=== PATIENT | female | born 1965 | race Caucasian/White ===

== ENCOUNTER 2020-12-01 08:17 | Day surgery (SDC) | payer MEDICAID ==
[~2020-12-01 08:17] MED LIST: Lactated Ringers 1,000 ML IV SCH; Lidocaine 1%/Sod Bicarbonate in NS 8.4% 1 ML Syringe IDERM PRN; Sodium Chloride 0.9% 10 ML Syringe FLUSH PRN
[2020-12-01] MEDS ORDERED: Propofol 200 MG/20 ML SDV ONE ×3 (09:04→10:59)
[2020-12-01] MEDS ORDERED: Lidocaine 1% 4 ML ONE (09:06)
[2020-12-01] MEDS ORDERED: Midazolam 1 MG/ML 2 ML SDV ONE (09:26)
--- NOTE | 2020-12-01 09:26 | PCM.PREANE ---
Preanesthetic Assessment - Procedure Proposed Procedure: EGD and Colonoscopy - Anesthesia/Transfusion/Family Hx Anesthesia History: Prior Anesthesia Without Reaction Family History of Anesthesia Reaction: No Transfusion History: No Prior Transfusion(s) Intubation History: Unknown - Review of Systems General: No Symptoms (diagnosed with MONO in the past (couple months ago)), Weakness, Fatigue Pulmonary: No Symptoms (Smoker: 1ppd times 39 years/History of ETOH abuse none for 3 days/asthma-last used inhaler 3 days ago.), Shortness of Breath, Cough Cardiovascular: No Symptoms (CAD on imaging, elevated cholesterol), Palpitations, Dyspnea on Exertion, Lightheadedness Gastrointestinal: Abdominal Pain (? PUD/rated 7-8/10), Constipation, Decreased Appetite, Difficulty Swallowing, Nausea, Vomiting Neurological: No Symptoms, Dizziness, Headache Other: Reports: Easy Bruising, Liver Problems (liver enlarged), Sinus Problem (allergic rhinitis), Depression, Anxiety - Physical Assessment NPO Status Date: 12/01/20 NPO Status Time: 05:30 Vital Signs: Last Vital Signs Temp 36.8 C 12/01/20 08:30 Pulse 88 12/01/20 08:30 Resp 18 12/01/20 08:30 BP 164/85 H 12/01/20 08:30 Pulse Ox 96 12/01/20 08:30 Height: 1.7 m Weight: 97.976 kg ASA Class: 3 Mental Status: Alert & Oriented x3 Airway Class: Mallampati = 2 Dentition: Reports: Normal Dentition, Broken Tooth/Teeth, Missing Tooth/Teeth, Caries Thyro-Mental Finger Breadths: 3 Mouth Opening Finger Breadths: 3 ROM/Head Extension: Full Lungs: Clear to Auscultation, Normal Respiratory Effort Cardiovascular: Regular Rate, Regular Rhythm, No Murmurs - Lab Values: All labs reviewed and noted and within acceptable ranges to proceed with scheduled procedure. - Imaging/EKG Impressions: EKG: SR rate=81, probable Left atrial abnormality - Allergies Allergies/Adverse Reactions: Allergies Allergy/AdvReac Type Severity Reaction Status Date / Time cephalexin [From Keflex] Allergy Swelling Verified 12/01/20 09:13 Cephalosporins Allergy Swelling Verified 12/01/20 09:13 hazelnut Allergy Cannot Verified 12/01/20 09:13 Remember naproxen [From Aleve] Allergy Anaphylactic Verified 12/01/20 09:13 Shock shellfish derived Allergy Cannot Verified 12/01/20 09:13 Remember - Anesthesia Plan Pre-Op Medication Ordered: None - Acknowledgements Anesthesia Type Planned: MAC Pt an Appropriate Candidate for the Planned Anesthesia: Yes Alternatives and Risks of Anesthesia Discussed w Pt/Guardian: Yes Pt/Guardian Understands and Agrees with Anesthesia Plan: Yes PreAnesthesia Questionnaire HEENT History: Reports: Allergic Rhinitis, Impaired Vision Other HEENT History: wears reading glasses, has removable bottom partial denture Cardiovascular History: Reports: High Cholesterol Respiratory History: Reports: Asthma Gastrointestinal History: Reports: None Genitourinary History: Reports: None 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: Musculoskeletal History: Reports: Arthritis, Osteoarthritis, Other (See Below) Other Musculoskeletal History: hip pain Neurological History: Reports: None Psychiatric History: Reports: Addiction, Anxiety, Other (See Below) Other Psychiatric History: etoh abuse Endocrine/Metabolic History: Reports: None Hematologic History: Reports: Other (See Below) Other Hematologic History: hypokalemia from alcohol abuse Immunologic History: Reports: None Oncologic (Cancer) History: Reports: None Dermatologic History: Reports: Other (See Below) Other Dermatologic History: has cystic acne - Infectious Disease History Infectious Disease History: Reports: None - Past Surgical History Head Surgeries/Procedures: Reports: None HEENT Surgical History: Reports: Oral Surgery Cardiovascular Surgical History: Reports: None Respiratory Surgical History: Reports: None GI Surgical History: Reports: None Female Surgical History: Reports: Tubal Ligation Male Surgical History: Reports: None Endocrine Surgical History: Reports: None Neurological Surgical History: Reports: None Musculoskeletal Surgical History: Reports: Hip Replacement Oncologic Surgical History: Reports: None Dermatological Surgical History: Reports: None - SUBSTANCE USE Tobacco Use Status *Q: Current Every Day Tobacco User Days Per Week of Alcohol Use: 7 Number of Drinks Per Day: 3 Total Drinks Per Week: 21 Recreational Drug Use History: No - HOME MEDS Home Medications: Home Meds Albuterol Sulfate [Proair Hfa] 2 puff INH Q4H PRN 11/30/20 [History] EPINEPHrine [Epipen] 0.3 mg IM ONETIME PRN 11/30/20 [History] Fluticasone Propionate [Flonase] 1 dose NASBOTH ASDIRECTED PRN 11/30/20 [History] Omeprazole Magnesium [Prilosec Otc] 20 mg PO DAILY 11/30/20 [History] Vortioxetine Hydrobromide [Trintellix] 10 mg PO DAILY 11/30/20 [History] atorvaSTATin [Lipitor] 40 mg PO DAILY 11/30/20 [History] chlordiazePOXIDE HCl [Chlordiazepoxide HCl] 10 mg PO DAILY 11/30/20 [History] ondansetron HCL [Zofran] 4 mg PO Q6H PRN 11/30/20 [History] - CURRENT (IN HOUSE) MEDS Current Meds: Current Medications Lactated Ringer's (Ringers, Lactated) 1,000 mls @ 125 mls/hr IV ASDIRECTED CARIN Stop: 12/01/20 23:00 Last Admin: 12/01/20 08:35 Dose: 125 mls/hr Documented by: Lidocaine/Sodium Bicarbonate (Lidocaine 1%/Sod Bicarbonate In Ns 8.4% 1 Ml Syringe) 0.25 ml IDERM ONETIME PRN PRN Reason: Prior to IV Start Stop: 12/01/20 18:00 Last Admin: 12/01/20 08:35 Dose: 0.25 ml Documented by: Sodium Chloride (Sodium Chloride 0.9% 10 Ml Syringe) 10 ml FLUSH ASDIRECTED PRN PRN Reason: Keep Vein Open Stop: 12/01/20 18:00 Discontinued Medications Lidocaine HCl (Xylocaine-Mpf 1%) Confirm Administered Dose 4 mls @ as directed .ROUTE .STK-MED ONE Stop: 12/01/20 09:07 Propofol (Propofol 200 Mg/20 Ml Sdv) Confirm Administered Dose 200 mg .ROUTE .STK-MED ONE Stop: 12/01/20 09:05
[2020-12-01] MEDS ORDERED: fentaNYL 100 MCG/2 ML SDV ONE ×2 (09:27→10:05)
[2020-12-01] MEDS ORDERED: Albuterol 0.083% 2.5 MG/3 ML Neb Soln ONE (09:39)
[2020-12-01] MEDS ORDERED: Lactated Ringers 1,000 ML ONE (10:05)
[2020-12-01] MEDS ORDERED: Albuterol 0.083% 2.5 MG/3 ML Neb Soln NEB ONE (10:30)
[2020-12-01] MEDS ORDERED: Ondansetron 4 MG/2 ML SDV IVPUSH PRN (11:08)
--- NOTE | 2020-12-01 11:36 | PCM.PRNOTE ---
- Free Text/Narrative Note: Date: 12/01/2020 Procedure: diagnostic upper endoscopy Indication: history of peptic ulcer disease with chronic severe epigastric pain and history of chronic NSAID use Endoscopist: Yordan Toscano MD Findings: prepyloric gastric ulcer (type III) with gross inflammatory change of the gastric body. Friable colonic mucosa with diverticulosis. Detailed Report: Patient was taken to the endoscopy suite and placed in left lateral decubitus position. Timeout was performed and monitored anesthesia care was initiated. A bite-block was placed and the endoscope was inserted into the mouth. The scope was advanced to the second portion of the duodenum with ease. Duodenal mucosa appeared grossly normal, and a sample of mucosa from the duodenal bulb was obtained with cold forceps. The scope was withdrawn into the distal stomach. There was a roughly 2 cm discrete ulcer with black and beckett-colored base without evidence of hemorrhage or gross appearance of malignancy. Multiple biopsies were taken from the ulcer and surrounding tissue. The mucosa of the gastric body more proximally appeared grossly inflamed. A biopsy of this tissue was obtained as well. On retroflexion, no hiatal hernia was appreciated. The scope was withdrawn into the distal esophagus. The Z-line appeared relatively normal. A biopsy of distal esophageal mucosa was obtained. Air was suctioned from the stomach prior to withdrawal of the scope. Next, attention was turned to colonoscopy. Visual inspection of the anus revealed small external hemorrhoidal skin tags. Digital exam was unremarkable-there was a palpable hypertrophied anal papilla. The colonoscope was advanced all the way to the cecum. The appendiceal orifice was visualized. Prep was very good. The scope was slowly withdrawn and mucosal surfaces were carefully inspected. Prior to traversing the proximal colon, there was noted superficial ulceration and what looked like fresh blood. It appeared like scope trauma but the scope did not traversed this area yet. This did not appear to be colitis, but a biopsy was obtained nonetheless. No polyps were identified. There was scattered diverticular disease most concentrated in the sigmoid colon. On retroflexion of the scope within the rectum, the hypertrophied anal papilla was visualized. There was no hemorrhoidal disease or other pathology noted. Air was suctioned from the distal colon and rectum prior to withdrawal of the scope. The patient tolerated the procedure well.
--- NOTE | 2020-12-01 11:37 | PCM48HPAN ---
Post Anesthesia Note - EVALUATION WITHIN 48HRS OF ANESTHETIC Vital Signs in Normal Range: Yes Patient Participated in Evaluation: Yes Respiratory Function Stable: Yes Airway Patent: Yes Cardiovascular Function Stable: Yes Hydration Status Stable: Yes Pain Control Satisfactory: Yes Nausea and Vomiting Control Satisfactory: Yes Mental Status Recovered: Yes Vital Signs: Last Vital Signs Temp 36.8 C 12/01/20 08:30 Pulse 88 12/01/20 08:30 Resp 18 12/01/20 08:30 BP 164/85 H 12/01/20 08:30 Pulse Ox 96 12/01/20 09:45
[2020-12-01] MEDS ORDERED: Sucralfate Suspension 1 GM/10 ML Cup PO ONE (11:45)
[2020-12-01 13:04] VITALS: BP 168/76; PULSE 81
--- NOTE | 2020-12-02 08:57 | CR ---
Abdomen: Upright view is obtained of the upper abdomen centered to the diaphragms. Comparison: Prior CT abdomen and pelvis exam of 11/13/20. Slight areas of increased densities within the left lateral costophrenic angle are noted. No free air is seen. Slightly prominent gas is noted within the small and large bowel. No acute osseous abnormalities appreciated. Impression: 1. Slight increased density within the lateral left costophrenic angle most likely due to atelectasis. 2. Gas within the small bowel and colon compatible with previous EGD. 3. No free air is seen. Diagnostic code #2 I agree with preliminary report from [facility] finalized on 12/01/20, 1:48 PM CDT, code 1
== END 2020-12-01 12:46 | disposition home or self-care (01) ==
LOC: JD.SDS 08:17
PROVIDERS: ATTEND Surgery
DX: Z12.11 Encounter for screening for malignant neoplasm of colon (principal); K57.30 Diverticulosis of large intestine without perforation or abscess without bleeding; K25.9 Gastric ulcer, unspecified as acute or chronic, without hemorrhage or perforation; K63.3 Ulcer of intestine; K64.4 Residual hemorrhoidal skin tags; K29.50 Unspecified chronic gastritis without bleeding; K31.89 Other diseases of stomach and duodenum; E78.00 Pure hypercholesterolemia, unspecified; J45.909 Unspecified asthma, uncomplicated; Z98.890 Other specified postprocedural states; Z79.1 Long term (current) use of non-steroidal anti-inflammatories (NSAID); Z87.891 Personal history of nicotine dependence; Z88.8 Allergy status to other drugs, medicaments and biological substances; Z91.013 Allergy to seafood; Z87.11 Personal history of peptic ulcer disease; Z79.899 Other long term (current) drug therapy; Z79.82 Long term (current) use of aspirin
CPT/HCPCS: 43239; 45380; 74018; 94640; A9270; J2250; J2704; J3010; J7120; 00813

== ENCOUNTER 2020-12-01 12:50 | Emergency (ER) | payer MEDICAID ==
[2020-12-01 13:07] VITALS: BP 168/88; PULSE 81
--- NOTE | 2020-12-01 13:52 | EDM.PDOC ---
ED HPI GENERAL MEDICAL PROBLEM - General Chief Complaint: Abdominal Pain Stated Complaint: STOMACH PAIN/POST SURGERY Time Seen by Provider: 12/01/20 13:10 - History of Present Illness INITIAL COMMENTS - FREE TEXT/NARRATIVE: 55-year-old female presents the emergency room from the PACU after having the EGD and colonoscopy done. Patient complains of pain. By the time patient arrived here she still having some pain but is a lot better than it was. Of concern is the patient's O2 saturation is 89 to 92%. The patient is a little groggy. However her pain seems to be improving according to the patient. We decided to just go ahead and watch the patient and see how she does. The patient is a habitual smoker and user of alcohol. Apparently she had a abdominal x-ray done after her procedures and this looked okay and the patient was discharged from the PACU, however she requested to come here. Abdomen Pain Score (Numeric/FACES): 7 - Related Data Allergies Allergy/AdvReac Type Severity Reaction Status Date / Time cephalexin [From Keflex] Allergy Swelling Verified 12/01/20 13:07 Cephalosporins Allergy Swelling Verified 12/01/20 13:07 hazelnut Allergy Cannot Verified 12/01/20 13:07 Remember naproxen [From Aleve] Allergy Anaphylactic Verified 12/01/20 13:07 Shock shellfish derived Allergy Cannot Verified 12/01/20 13:07 Remember Home Meds: Home Meds Albuterol Sulfate [Proair Hfa] 2 puff INH Q4H PRN 11/30/20 [History] EPINEPHrine [Epipen] 0.3 mg IM ONETIME PRN 11/30/20 [History] Fluticasone Propionate [Flonase] 1 dose NASBOTH ASDIRECTED PRN 11/30/20 [History] Omeprazole Magnesium [Prilosec Otc] 20 mg PO DAILY 11/30/20 [History] Vortioxetine Hydrobromide [Trintellix] 10 mg PO DAILY 11/30/20 [History] atorvaSTATin [Lipitor] 40 mg PO DAILY 11/30/20 [History] chlordiazePOXIDE HCl [Chlordiazepoxide HCl] 10 mg PO DAILY 11/30/20 [History] ondansetron HCL [Zofran] 4 mg PO Q6H PRN 11/30/20 [History] Sucralfate [Carafate] 1 gm PO Q6HR #60 tab 12/01/20 [Rx] Past Medical History HEENT History: Reports: Allergic Rhinitis, Impaired Vision Other HEENT History: wears reading glasses, has removable bottom partial denture Cardiovascular History: Reports: High Cholesterol Respiratory History: Reports: Asthma Gastrointestinal History: Reports: None Genitourinary History: Reports: None 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: Musculoskeletal History: Reports: Arthritis, Osteoarthritis, Other (See Below) Other Musculoskeletal History: hip pain Neurological History: Reports: None Psychiatric History: Reports: Addiction, Anxiety, Other (See Below) Other Psychiatric History: etoh abuse Endocrine/Metabolic History: Reports: None Hematologic History: Reports: Other (See Below) Other Hematologic History: hypokalemia from alcohol abuse Immunologic History: Reports: None Oncologic (Cancer) History: Reports: None Dermatologic History: Reports: Other (See Below) Other Dermatologic History: has cystic acne - Infectious Disease History Infectious Disease History: Reports: None - Past Surgical History Head Surgeries/Procedures: Reports: None HEENT Surgical History: Reports: Oral Surgery Cardiovascular Surgical History: Reports: None Respiratory Surgical History: Reports: None GI Surgical History: Reports: None Female Surgical History: Reports: Tubal Ligation Male Surgical History: Reports: None Endocrine Surgical History: Reports: None Neurological Surgical History: Reports: None Musculoskeletal Surgical History: Reports: Hip Replacement Oncologic Surgical History: Reports: None Dermatological Surgical History: Reports: None Social & Family History - Tobacco Use Tobacco Use Status *Q: Current Every Day Tobacco User Years of Tobacco use: 40 Packs/Tins Daily: 0.5 - Caffeine Use Caffeine Use: Reports: Soda - Recreational Drug Use Recreational Drug Use: No ED ROS GENERAL - Review of Systems Review Of Systems: See Below Constitutional: Reports: No Symptoms Respiratory: Reports: No Symptoms Cardiovascular: Reports: No Symptoms GI/Abdominal: Reports: Abdominal Pain. Denies: Constipation, Diarrhea, Nausea, Vomiting : Reports: No Symptoms ED EXAM, GENERAL - Physical Exam Exam: See Below Exam Limited By: No Limitations General Appearance: Alert, Other (Desaturation is stated above) Respiratory/Chest: No Respiratory Distress, Lungs Clear, Normal Breath Sounds Cardiovascular: Regular Rate, Rhythm, No Edema, No Murmur GI/Abdominal: Normal Bowel Sounds, Soft, Non-Tender, Other (Exam of this abdomen was done after she had been here for a while and she is essentially pain-free at this time she had mild discomfort on initial exam when she first arrived) Extremities: Normal Inspection, No Pedal Edema Course - Vital Signs Last Recorded V/S: Last Vital Signs Temp 36.1 C 12/01/20 13:04 Pulse 81 12/01/20 13:04 Resp 12 12/01/20 13:04 BP 168/88 H 12/01/20 13:04 Pulse Ox 95 12/01/20 14:29 - Orders/Labs/Meds Orders: Active Orders 24 hr Category Date Time Status Oxygen Therapy [RC] ASDIRECTED Care 12/01/20 14:29 Active - Re-Assessments/Exams Free Text/Narrative Re-Assessment/Exam: 12/01/20 15:24 The whole situation was a little confusing so I made the decision just to watch her for little bit and see how she did she is demonstrated good stability here in the emergency room. I did review her x-ray that was done postoperatively wh ich showed a lot of bowel gas which is to be expected after having a colonoscopy. No evidence of air under the diaphragm. At this point the patient would really like to go home we will discharge. Departure - Departure Time of Disposition: 15:27 Disposition: Home, Self-Care 01 Clinical Impression: Abdominal pain - Discharge Information Referrals: PCP,Not In Area [Primary Care Provider] - Forms: ED Department Discharge Additional Instructions: Return to the emergency room with any questions problems or worsening symptoms. Follow-up with Dr. Toscano as scheduled. Take your medications as directed. Please quit smoking. Sepsis Event Note (ED) - Evaluation Sepsis Screening Result: No Definite Risk - Focused Exam Vital Signs: Vital Signs Temp Pulse Resp BP Pulse Ox Pulse Ox 12/01/20 14:29 95 12/01/20 13:04 36.1 C 81 12 168/88 H 93 L - My Orders Last 24 Hours: My Active Orders 12/01/20 14:29 Oxygen Therapy [RC] ASDIRECTED - Assessment/Plan Last 24 Hours: My Active Orders 12/01/20 14:29 Oxygen Therapy [RC] ASDIRECTED
== END 2020-12-01 15:33 | disposition home or self-care (01) ==
LOC: JD.ED 12:50
DX: R10.9 Unspecified abdominal pain (principal); E78.00 Pure hypercholesterolemia, unspecified; J45.909 Unspecified asthma, uncomplicated; F17.200 Nicotine dependence, unspecified, uncomplicated; Z88.1 Allergy status to other antibiotic agents; Z91.018 Allergy to other foods; Z88.8 Allergy status to other drugs, medicaments and biological substances; Z91.013 Allergy to seafood; Z79.899 Other long term (current) drug therapy
CPT/HCPCS: 94762; 99282; 99283

== ENCOUNTER 2021-02-21 08:43 | Emergency (ER) | payer MEDICAID ==
[2021-02-21 09:00] VITALS: BP 160/85; PULSE 103
--- NOTE | 2021-02-21 09:08 | EDM.PDOC ---
ED HPI GENERAL MEDICAL PROBLEM - General Chief Complaint: General Stated Complaint: LEFT SIDE FULL BODY NUMBNESS Time Seen by Provider: 02/21/21 08:59 Source of Information: Reports: Patient History Limitations: Reports: No Limitations - History of Present Illness INITIAL COMMENTS - FREE TEXT/NARRATIVE: 56-year-old female presents to the ED complaining of diffuse left-sided numbness and tingling primarily in her leg and arm. Not so much in her face. She states she feels she is stumbling and weak at times. This has been going on for a week and 1/2 to 2 weeks. She denies any recent changes to any of her medications. Of note she is on multiple antidepressants. She states that time she feels hot and prickly all over but has never noted a fever. She has chronic GERD and peptic ulcer disease. She has to be careful what she swallows that she develops odynophagia with regurgitation at times. She was seen this morning in ultrasound suite for gallbladder ultrasound and apparently did not reveal any gallstones. She has no cough or sputum production. Denies any dysuria urgency or frequency. She does have a painful sore on her lower abdomen above her mons pubis for the last week tried to squeeze it but is too painful. She has no history of diabetes. Onset: Unknown/Unsure (Feels symptoms of been present for a couple of weeks.) Onset Date: 02/03/21 Duration: Week(s):, Waxing/Waning Location: Reports: Other (Feels numbness and tingling left arm left lower ext remity with generalized weakness.) Quality: Reports: Other Severity: Moderate (Generalized weakness) Improves with: Reports: None Worsens with: Reports: Other Context: Reports: Other (No specific reason.). Denies: Activity, Exercise, Lifting, Sick Contact, Trauma Associated Symptoms: Reports: Loss of Appetite, Malaise, Nausea/Vomiting, Weakness (Occasional nausea centralized). Denies: Confusion, Chest Pain, Cough, cough w sputum, Diaphoresis, Fever/Chills, Headaches, Rash, Seizure, Shortness of Breath, Syncope Treatments UND[employer]ITER [employer] LOAN: Reports: Other (see below) Generalized Pain Score (Numeric/FACES): 9 - Related Data Allergies Allergy/AdvReac Type Severity Reaction Status Date / Time cephalexin [From Keflex] Allergy Swelling Verified 02/21/21 09:01 Cephalosporins Allergy Swelling Verified 02/21/21 09:01 hazelnut Allergy Cannot Verified 02/21/21 09:01 Remember naproxen [From Aleve] Allergy Anaphylactic Verified 02/21/21 09:01 Shock shellfish derived Allergy Cannot Verified 02/21/21 09:01 Remember Home Meds: Home Meds Albuterol Sulfate [Proair Hfa] 2 puff INH Q4H PRN 11/30/20 [History] EPINEPHrine [Epipen] 0.3 mg IM ONETIME PRN 11/30/20 [History] Fluticasone Propionate [Flonase] 1 dose NASBOTH ASDIRECTED PRN 11/30/20 [History] Omeprazole Magnesium [Prilosec Otc] 20 mg PO DAILY 11/30/20 [History] Vortioxetine Hydrobromide [Trintellix] 10 mg PO DAILY 11/30/20 [History] atorvaSTATin [Lipitor] 40 mg PO DAILY 11/30/20 [History] chlordiazePOXIDE HCl [Chlordiazepoxide HCl] 10 mg PO DAILY 11/30/20 [History] ondansetron HCL [Zofran] 4 mg PO Q6H PRN 11/30/20 [History] Sucralfate [Carafate] 1 gm PO Q6HR #60 tab 12/01/20 [Rx] Ondansetron [Ondansetron ODT] 4 mg PO Q6H PRN #30 tab.rapdis 12/07/20 [Rx] Gabapentin [Neurontin] 100 mg PO BID #60 cap 02/21/21 [Rx] oxyCODONE HCl/Acetaminophen [Percocet 5-325 mg Tablet] 1 - 2 each PO Q4H PRN #28 tablet 02/21/21 [Rx] Past Medical History HEENT History: Reports: Allergic Rhinitis, Impaired Vision Other HEENT History: wears reading glasses, has removable bottom partial denture Cardiovascular History: Reports: High Cholesterol Respiratory History: Reports: Asthma Gastrointestinal History: Reports: None Genitourinary History: Reports: None [employer] History: Reports: Musculoskeletal History: Reports: Arthritis, Osteoarthritis, Other (See Below) Other Musculoskeletal History: hip pain Neurological History: Reports: None Psychiatric History: Reports: Addiction, Anxiety, Other (See Below) Other Psychiatric History: etoh abuse Endocrine/Metabolic History: Reports: Obesity/BMI 30+ Hematologic History: Reports: Other (See Below) Other Hematologic History: hypokalemia from alcohol abuse Immunologic History: Reports: None Oncologic (Cancer) History: Reports: None Dermatologic History: Reports: Other (See Below) Other Dermatologic History: has cystic acne - Infectious Disease History Infectious Disease History: Reports: None - Past Surgical History HEENT Surgical History: Reports: Oral Surgery Female Surgical History: Reports: Tubal Ligation Musculoskeletal Surgical History: Reports: Hip Replacement Social & Family History - Caffeine Use Caffeine Use: Reports: Soda ED ROS GENERAL - Review of Systems Review Of Systems: See Below Constitutional: Reports: Malaise, Weakness, Fatigue, Decreased Appetite, Weight Gain. Denies: Fever, Chills HEENT: Reports: Glasses (Wears readers.) Respiratory: Reports: Shortness of Breath. Denies: Wheezing, Pleuritic Chest Pain, Cough (On exertion), Sputum Cardiovascular: Reports: Dyspnea on Exertion, Lightheadedness. Denies: Chest Pain, Blood Pressure Problem, Claudication, Edema, Orthopnea, Palpitations Endocrine: Reports: Fatigue (On occasion) GI/Abdominal: Reports: Constipation : Reports: Frequency, Other. Denies: Dysuria Musculoskeletal: Reports: Joint Pain (Knees hips low back neck at times) Skin: Reports: Other (Red sore midline of the lower abdomen just above the mons pubis) Neurological: Reports: Headache, Numbness, Paresthesia, Tingling (Numbness and tingling left arm left leg and perhaps mildly in the left face at times.), Difficulty Walking, Weakness. Denies: Confusion (. She believes this is been present for about a week.), Dizziness, Pre-Existing Deficit (Left-sided), Seizure, Syncope, Tremors, Trouble Speaking (Feels stumble he at times.), Change in Speech Psychiatric: Reports: Anxiety, Depression Hematologic/Lymphatic: Reports: No Symptoms Immunologic: Reports: No Symptoms ED EXAM, GENERAL - Physical Exam Exam: See Below Exam Limited By: No Limitations General Appearance: Alert, WD/WN, No Apparent Distress, Other (Temperature is 36.6 degrees and she does not feel warm to palpation heart rate was 103 and sinus at the bedside. Respiratory of 18 with O2 sats of 98% room air. Blood pressure mildly elevated 160/85.) Eye Exam: Right Eye: Normal Inspection (No skin), Bilateral Eye: PERRL Throat/Mouth: Other Head: Atraumatic, Normocephalic Neck: Normal Inspection, Tender Lateral (Mild tenderness bilateral cervical spine. Full range of motion however.). No: Carotid Bruit, Lymphadenopathy (L), Lymphadenopathy (R) Respiratory/Chest: No Respiratory Distress, Lungs Clear, Normal Breath Sounds, No Accessory Muscle Use, Other (Mild chest wall tenderness over the fourth rib bilaterally and she comments that her breasts hurt all the time as well. I.e. mastalgia) Cardiovascular: Normal Peripheral Pulses, Regular Rate, Rhythm, No Edema, No Gallop, No Murmur, No Rub Peripheral Pulses: 2+: Carotid (L), Carotid (R), Posterior Tibial (L), Posterior Tibial (R), Dorsalis Pedis (L), Dorsalis Pedis (R) GI/Abdominal: Normal Bowel Sounds, Soft, Non-Tender, No Organomegaly, No Distention, No Mass, Pelvis Stable, Other (Mildly obese.). No: Guarding, Rigid, Rebound, Tender Back Exam: Normal Inspection, Full Range of Motion. No: CVA Tenderness (L), CVA Tenderness (R) Extremities: Normal Inspection, Normal Range of Motion, Non-Tender, No Pedal Edema Neurological: Alert, Oriented, CN II-XII Intact, Normal Cognition, Other (No pronator drift. No motor power tone deficit in either upper extremity or lower extremities. [id number] evaluation normal.) Psychiatric: Normal Affect, Normal Mood Skin Exam: Warm, Dry, Intact, Normal Color, No Rash #1 Interpretation EKG Date: 02/21/21 Time: 09:31 Rhythm: NSR Rate (Beats/Min): 92 [place]: Normal P-Wave: Enlarged (Consider left atrial hypertrophy) QRS: Other (Initial poor R wave progression.) ST-T: Other (Diffuse delayed repolarization abnormality) QT: Prolonged (Mildly prolonged) EKG Interpretation Comments: Abnormal ECG Course - Vital Signs Last Recorded V/S: Last Vital Signs Temp 36.6 C 02/21/21 08:57 Pulse 103 H 02/21/21 08:57 Resp 18 02/21/21 08:57 BP 160/85 H 02/21/21 08:57 Pulse Ox 98 02/21/21 08:57 - Orders/Labs/Meds Labs: Laboratory Tests 02/21/21 02/21/21 02/21/21 Range/Units 09:24 09:24 09:24 WBC 7.08 (3.98-10.04) K/mm3 RBC 3.80 L (3.98-5.22) M/mm3 Hgb 14.1 (11.2-15.7) gm/dl Hct 41.2 (34.1-44.9) % MCV 108.4 H (79.4-94.8) fl MCH 37.1 H (25.6-32.2) pg MCHC 34.2 (32.2-35.5) g/dl RDW Std Deviation 67.1 H (36.4-46.3) fL Plt Count 143 L (182-369) K/mm3 MPV 11.5 (9.4-12.3) fl Neut % (Auto) 67.5 (34.0-71.1) % Lymph % (Auto) 23.9 (19.3-51.7) % Parker % (Auto) 6.9 (4.7-12.5) % Eos % (Auto) 1.3 (0.7-5.8) Baso % (Auto) 0.4 (0.1-1.2) % Neut # (Auto) 4.78 (1.56-6.13) K/mm3 Lymph # (Auto) 1.69 (1.18-3.74) K/mm3 Parker # (Auto) 0.49 H (0.24-0.36) K/mm3 Eos # (Auto) 0.09 (0.04-0.36) K/mm3 Baso # (Auto) 0.03 (0.01-0.08) K/mm3 Manual Slide Review Abnormal smear ESR 49 H (0-20) mm/hr Sodium 143 (136-145) mEq/L Potassium 3.6 (3.5-5.1) mEq/L Chloride 105 (98-107) mEq/L Carbon Dioxide 25 (21-32) mEq/L Anion Gap 16.6 H (5-15) BUN 3 L (7-18) mg/dL Creatinine 0.7 (0.55-1.02) mg/dL Est Cr Clr Drug Dosing 85.19 mL/min Estimated GFR (MDRD) > 60 (>60) mL/min BUN/Creatinine Ratio 4.3 L (14-18) Glucose 104 H (70-99) mg/dL Calcium 8.9 (8.5-10.1) mg/dL Magnesium 1.8 (1.8-2.4) mg/dL Total Bilirubin 1.5 H (0.2-1.0) mg/dL GGT (5-55) U/L AST 107 H (15-37) U/L ALT 30 (14-59) U/L Alkaline Phosphatase 408 H (46-116) U/L C-Reactive Protein 3.2 H* (<1.0) mg/dL Total Protein 8.0 (6.4-8.2) g/dl Albumin 3.1 L (3.4-5.0) g/dl Globulin 4.9 gm/dL Albumin/Globulin Ratio 0.6 L (1-2) Vitamin B12 (193-986) pg/ml TSH 3rd Generation 2.992 (0.358-3.74) uIU/mL Urine Color (Yellow) Urine Appearance (Clear) Urine pH (5.0-8.0) Ur Specific [place] (1.005-1.030) Urine Protein (Negative) Urine Glucose (UA) (Negative) Urine Ketones (Negative) Urine Occult Blood (Negative) Urine Nitrite (Negative) Urine Bilirubin (Negative) Urine Urobilinogen (0.2-1.0) Ur Leukocyte Esterase (Negative) Urine RBC (0-5) /hpf Urine WBC (0-5) /hpf Ur Squamous Epith Cells (0-5) /hpf Urine Bacteria (FEW) /hpf Urine Mucus (FEW) /hpf 02/21/21 02/21/21 02/21/21 Range/Units 09:24 09:24 12:05 WBC (3.98-10.04) K/mm3 RBC (3.98-5.22) M/mm3 Hgb (11.2-15.7) gm/dl Hct (34.1-44.9) % MCV (79.4-94.8) fl MCH (25.6-32.2) pg MCHC (32.2-35.5) g/dl RDW Std Deviation (36.4-46.3) fL Plt Count (182-369) K/mm3 MPV (9.4-12.3) fl Neut % (Auto) (34.0-71.1) % Lymph % (Auto) (19.3-51.7) % Parker % (Auto) (4.7-12.5) % Eos % (Auto) (0.7-5.8) Baso % (Auto) (0.1-1.2) % Neut # (Auto) (1.56-6.13) K/mm3 Lymph # (Auto) (1.18-3.74) K/mm3 Parker # (Auto) (0.24-0.36) K/mm3 Eos # (Auto) (0.04-0.36) K/mm3 Baso # (Auto) (0.01-0.08) K/mm3 Manual Slide Review ESR (0-20) mm/hr Sodium (136-145) mEq/L Potassium (3.5-5.1) mEq/L Chloride (98-107) mEq/L Carbon Dioxide (21-32) mEq/L Anion Gap (5-15) BUN (7-18) mg/dL Creatinine (0.55-1.02) mg/dL Est Cr Clr Drug Dosing mL/min Estimated GFR (MDRD) (>60) mL/min BUN/Creatinine Ratio (14-18) Glucose (70-99) mg/dL Calcium (8.5-10.1) mg/dL Magnesium (1.8-2.4) mg/dL Total Bilirubin (0.2-1.0) mg/dL GGT 876 H (5-55) U/L AST (15-37) U/L ALT (14-59) U/L Alkaline Phosphatase (46-116) U/L C-Reactive Protein (<1.0) mg/dL Total Protein (6.4-8.2) g/dl Albumin (3.4-5.0) g/dl Globulin gm/dL Albumin/Globulin Ratio (1-2) Vitamin B12 1581 H (193-986) pg/ml TSH 3rd Generation (0.358-3.74) uIU/mL Urine Color Belinda H (Yellow) Urine Appearance Slt cloudy H (Clear) Urine pH 7.0 (5.0-8.0) Ur Specific [place] 1.020 (1.005-1.030) Urine Protein 2+ H (Negative) Urine Glucose (UA) Negative (Negative) Urine Ketones Trace H (Negative) Urine Occult Blood Negative (Negative) Urine Nitrite Negative (Negative) Urine Bilirubin 2+ H (Negative) Urine Urobilinogen 4.0 H (0.2-1.0) Ur Leukocyte Esterase Negative (Negative) Urine RBC 0-5 (0-5) /hpf Urine WBC 0-5 (0-5) /hpf Ur Squamous Epith Cells 5-10 H (0-5) /hpf Urine Bacteria Few (FEW) /hpf Urine Mucus Many H (FEW) /hpf Meds: Medications Discontinued Medications Generic Name Dose Route Start Last Admin Trade Name Freq PRN Reason Stop Dose Admin Hydromorphone HCl 1 mg 02/21/21 12:29 02/21/21 12:42 Hydromorphone 1 Mg/Ml Syringe IVPUSH 02/21/21 12:30 1 mg ONETIME ONE Administration Dextrose/Sodium Chloride 1,000 mls @ 250 mls/hr 02/21/21 09:15 02/21/21 09:25 Dextrose 5%-Normal Saline IV 250 mls/hr ASDIRECTED CARIN Administration Ondansetron HCl 4 mg 02/21/21 12:32 02/21/21 12:43 Ondansetron 4 Mg/2 Ml Sdv IVPUSH 02/21/21 12:33 4 mg ONETIME ONE Administration - Radiology Interpretation Free Text/Narrative:: 56-year-old female attends the ED with a 2-week history are better of intermittent paresthesias particularly left leg left arm and occasionally left side of her face. Associated intermittent stumbling type gait noted more so on the left side and on the right. Headaches almost daily. Denies any visual acuity changes recently needing glasses to operate her cell phone. Plan IV D5 normal saline at 250 mils per hour. Routine labs and serum TSH to be done. CT head will be done as well. - Re-Assessments/Exams Free Text/Narrative Re-Assessment/Exam: 02/21/21 10:42 CT of the head without contrast has been completed. Visualized sulci and convexities are little more prominent than one went anticipated for her age. I.e. mild generalized atrophy. Mild small vessel ischemic changes of both basal ganglia. Ventricles are normal. Visualized paranasal sinuses are normal. There is no intracranial mass-effect or bleeding. Nothing to account for left-sided paresthesias. I reviewed the gallbladder ultrasound that was done this morning as well. It revealed slightly enlarged liver with steatosis. Gallbladder contains no gallstones and no thickening of the gallbladder wall. Visualized portion of the right kidney within normal limits. Visualized portions of the head of the pancreas were reportedly normal as well. 02/21/21 10:45 White count is 7.08 67.5% neutrophils. Hemoglobin is 14.1 with hematocrit of 41.2. MCV is elevated at 108.4. Platelet count 143,000. Sed rate is elevated at forty-nine. Sodium is 143 with a potassium 3.6. Chloride 105 with a bicarb of twenty-five. Anion gap is slightly elevated at 618.6. BUN is three with a creatinine of 0.7 and GFR greater than sixty. Glucose is 104. Calcium was 8.9. Magnesium 1.8. Bilirubin is mildly elevated at 1.5 with AST of 107 and ALT of thirty. Alkaline phosphatase is elevated at 408. C-reactive protein is mildly elevated at 3.2. Total protein 8.0 with an albumin fraction of 3.1 TSH is normal at 2.99. A serum GGT will be ordered with a lipase. Need to see if alkaline phosphatase elevation is coming from bone or liver. 02/21/21 11:59 GGT is elevated at 876. Therefore elevated alk. phosphatase is coming from the liver. He had the CT scan of the abdomen pelvis that was performed in November of this year and it did indicate some splenomegaly and hepatomegaly. On questioning the patient does indicate that she did have a heavy alcohol use pattern for many years but has slowed it up tremendously the last several months. She was also appreciated to have duodenitis and had 2 ul cers apparently on EGD exam. She states she is lost 24 pounds of weight in the last 4 months likely from stopping to drink alcohol but she reports she cannot have very much to eat at one time as will make her have increased upper abdominal pain or vomit. Current pain syndrome appears to be fibromyalgia. It appears that is worsened tremendously over the last 2 weeks. Patient will be given Dilaudid 1 mg IV with Zofran 4 mg IV for generalized pain syndrome. 02/21/21 15:00 B12 level came back normal at 1581. Generalized pain syndrome appears to be secondary to her myalgias syndrome. For some reason it has gotten dramatically worse over the last 2 weeks. Unclear if this could be due to Trintellix since I have no familiarity with this drug and his serotonin changes in the brain. It appears that she is unlikely to benefit from alternative antidepressant at this time. I will discharge her on Percocet tabs 5 /325 mg strength 1 every 6-8 hours as needed for pain relief until follow-up with her primary care provider. She also bought MiraLAX 17 g daily to prevent constipation while on pain medication. Consideration of Neurontin or gabapentin for current pain syndrome and I will start her on 100 mg at bedtime. Departure - Departure Time of Disposition: 15:10 Disposition: Home, Self-Care 01 Condition: Fair Clinical Impression: Primary fibromyalgia syndrome - Discharge Information *PRESCRIPTION DRUG MONITORING PROGRAM REVIEWED*: Not Applicable *COPY OF PRESCRIPTION DRUG MONITORING REPORT IN PATIENT TOO: Not Applicable Prescriptions: Gabapentin [Neurontin] 100 mg PO BID #60 cap oxyCODONE HCl/Acetaminophen [Percocet 5-325 mg Tablet] 1 - 2 each PO Q4H PRN #28 tablet PRN Reason: pain relief. Instructions: Myofascial Pain Syndrome and Fibromyalgia Referrals: PCP,Not In Area [Primary Care Provider] - Forms: ED Department Discharge Additional Instructions: Evaluation in the emergency room today in regards to diffuse left-sided numbness tingling burning and prickly sensation which we called paresthesias. The exact cause for this is unclear but it appears to be underlying fibromyalgia syndrome due to the pain that it is causing you. Symptoms have worsened substantially in the last [address] of the brain carried out reveals no abnormalities. Lab tests reveal evidence of fatty liver disease and perhaps very mild cirrhosis of the liver from previous alcohol overuse. Vitamin B12 levels were checked and they came back in the normal range. Treatment is therefore management of pain with Neurontin 100 mg at bedtime and 100 mg first thing in the morning for the next 10 to 14 days and then dosage could be gradually increased as tolerated. In the interim Percocet tabs 5/325 mg strength ideally 1 tablet every 6-8 hours as needed for pain relief until follow-up with primary care provider. Continue all other current medications as well. You should start MiraLAX powder 17 g daily with juice of choice to prevent constipation while taking pain medications. Sepsis Event Note (ED) - Focused Exam Vital Signs: Vital Signs Temp Pulse Resp BP Pulse Ox 08/03/21 08:57 36.6 C 103 H 18 160/85 H 98
[2021-02-21] MEDS ORDERED: Dextrose 5%-0.9% NaCl 1,000 ML IV SCH (09:15)
--- NOTE | 2021-02-21 10:11 | CT ---
Head CT Technique: Multiple axial sections through the brain were obtained. Reconstructed coronal and sagittal images were obtained. Intravenous contrast was not utilized. Comparison: No previous intracranial imaging is available. Findings: Ventricles along with basal cisterns and sulci over the convexities are slightly prominent. No abnormal parenchymal densities are seen. No evidence of intracranial hemorrhage is seen. No midline shift or mass-effect is seen. Bone window settings were reviewed. Visualized paranasal sinuses and mastoid sinuses show nothing acute. No acute calvarial abnormality is appreciated. Impression: 1. Mild generalized atrophy. 2. Nothing acute is appreciated on noncontrast head CT study. Note: MRI brain would be more sensitive for evaluation of white matter disease if clinically needed. Diagnostic code #2
[2021-02-21] MEDS ORDERED: HYDROmorphone 1 MG/ML Syringe IVPUSH ONE (12:29)
[2021-02-21] MEDS ORDERED: Ondansetron 4 MG/2 ML SDV IVPUSH ONE (12:32)
== END 2021-02-21 15:29 | disposition home or self-care (01) ==
LOC: JD.ED 08:43
DX: M79.7 Fibromyalgia (principal); E78.00 Pure hypercholesterolemia, unspecified; J45.909 Unspecified asthma, uncomplicated; M19.90 Unspecified osteoarthritis, unspecified site; R94.31 Abnormal electrocardiogram [ECG] [EKG]; E66.9 Obesity, unspecified; Z68.30 Body mass index [BMI] 30.0-30.9, adult; Z88.1 Allergy status to other antibiotic agents; Z88.6 Allergy status to analgesic agent; Z91.013 Allergy to seafood; Z91.018 Allergy to other foods; Z79.899 Other long term (current) drug therapy
CPT/HCPCS: 36415; 70450; 80053; 81001; 82607; 82977; 83735; 84443; 85025; 85652; 86140; 93005; 96374; 96375; 99284; J1170; J2405; J7042; 93010

== ENCOUNTER 2021-04-12 20:59 | Emergency (ER) | payer MEDICAID ==
[2021-04-12 21:08] VITALS: BP 128/105
--- NOTE | 2021-04-12 21:09 | EDM.PDOC ---
ED HPI GENERAL MEDICAL PROBLEM - General Chief Complaint: General Stated Complaint: [facility] Time Seen by Provider: 04/12/21 21:01 - History of Present Illness INITIAL COMMENTS - FREE TEXT/NARRATIVE: 56-year-old female brought in by [facility] with multiple complaints. Patient is weak and tired hurts all over she has felt warm at times. She has some intermittent abdominal symptoms. She does not believe she is been exposed to Covid because she never goes out of the house but her boyfriend had Covid a year ago and he is in and out all the time. The patient may also have problems with her potassium being low she most from this 5 years ago. However the patient does not take any medications for this in fact she says she was on 20 some odd medications in the past and stopped them all some time ago she has scratch that. She has not been able to document any fevers but she feels warm at times. She really denies any shortness of breath or cough. She also complains of left rib pain however denies any trauma. Chest Pain Score (Numeric/FACES): 4 - Related Data Allergies Allergy/AdvReac Type Severity Reaction Status Date / Time cephalexin [From Keflex] Allergy Swelling Verified 04/12/21 21:07 Cephalosporins Allergy Swelling Verified 04/12/21 21:07 hazelnut Allergy Cannot Verified 04/12/21 21:07 Remember naproxen [From Aleve] Allergy Anaphylactic Verified 04/12/21 21:07 Shock shellfish derived Allergy Cannot Verified 04/12/21 21:07 Remember Home Meds: Home Meds Potassium Chloride 20 meq PO BID #6 packet 04/13/21 [Rx] Past Medical History HEENT History: Reports: Allergic Rhinitis, Impaired Vision Other HEENT History: wears reading glasses, has removable bottom partial denture Cardiovascular History: Reports: High Cholesterol Respiratory History: Reports: Asthma Gastrointestinal History: Reports: None Genitourinary History: Reports: None 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: Musculoskeletal History: Reports: Arthritis, Osteoarthritis, Other (See Below) Other Musculoskeletal History: hip pain Neurological History: Reports: None Psychiatric History: Reports: Addiction, Anxiety, Other (See Below) Other Psychiatric History: etoh abuse Endocrine/Metabolic History: Reports: Obesity/BMI 30+ Hematologic History: Reports: Other (See Below) Other Hematologic History: hypokalemia from alcohol abuse Immunologic History: Reports: None Oncologic (Cancer) History: Reports: None Dermatologic History: Reports: Other (See Below) Other Dermatologic History: has cystic acne - Infectious Disease History Infectious Disease History: Reports: None - Past Surgical History HEENT Surgical History: Reports: Oral Surgery Female Surgical History: Reports: Tubal Ligation Musculoskeletal Surgical History: Reports: Hip Replacement Social & Family History - Caffeine Use Caffeine Use: Reports: Soda ED ROS GENERAL - Review of Systems Review Of Systems: See Below Constitutional: Reports: No Symptoms HEENT: Reports: No Symptoms Respiratory: Reports: No Symptoms Cardiovascular: Reports: No Symptoms Endocrine: Reports: No Symptoms GI/Abdominal: Reports: Constipation Musculoskeletal: Reports: Other (Generalized crampiness) Skin: Reports: No Symptoms Neurological: Reports: No Symptoms Psychiatric: Reports: Anxiety ED EXAM, GENERAL - Physical Exam Exam: See Below Exam Limited By: No Limitations General Appearance: Alert, No Apparent Distress Head: Atraumatic, Normocephalic Neck: Normal Inspection, Supple, Non-Tender, Full Range of Motion. No: Lymphadenopathy (L), Lymphadenopathy (R) Respiratory/Chest: No Respiratory Distress, Lungs Clear, Normal Breath Sounds Cardiovascular: Normal Peripheral Pulses, Regular Rate, Rhythm, No Edema GI/Abdominal: Normal Bowel Sounds, Soft, Non-Tender Back Exam: Normal Inspection. No: CVA Tenderness (L), CVA Tenderness (R) Extremities: Normal Inspection, No Pedal Edema Neurological: Alert, Oriented, Normal Cognition Psychiatric: Anxious Skin Exam: Warm, Dry, Intact Lymphatic: No Adenopathy #1 Interpretation EKG Date: 04/12/21 Rhythm: NSR [place]: Normal P-Wave: Present QRS: Other (Mostly normal slight delay in R wave progression) ST-T: Normal QT: Normal Comparison: No Change (No change noted from 02/21/2021) EKG Interpretation Comments: Mostly normal EKG Course - Vital Signs Last Recorded V/S: Last Vital Signs Temp 36.6 C 04/12/21 21:06 Pulse 83 04/13/21 05:17 Resp 16 04/13/21 03:03 BP 128/105 H 04/12/21 21:06 Pulse Ox 96 04/13/21 05:17 - Orders/Labs/Meds Orders: Active Orders 24 hr Category Date Time Status Chest 1V Frontal [CR] Stat Exams 04/12/21 21:19 Taken CORONAVIRUS COVID-19 DEMOND [MOLEC] Stat Lab 04/12/21 21:02 Ordered UA RFX HEVER AND CULT IF INDIC [URIN] Stat Lab 04/12/21 21:19 Ordered Sodium Chloride 0.9% [Normal Saline] 1,000 ml Med 04/13/21 00:45 Active IV ONETIME Medication Orders Sodium Chloride (Normal Saline) 1,000 mls @ 75 mls/hr IV ONETIME ONE Stop: 04/13/21 14:04 Last Admin: 04/13/21 00:45 Dose: 75 mls/hr Documented by: PAYAL Labs: Laboratory Tests 04/12/21 04/12/21 04/12/21 Range/Units 21:20 21:20 21:20 WBC 6.94 (3.98-10.04) K/mm3 RBC 3.79 L (3.98-5.22) M/mm3 Hgb 12.7 (11.2-15.7) gm/dl Hct 38.6 (34.1-44.9) % MCV 101.8 H D (79.4-94.8) fl MCH 33.5 H (25.6-32.2) pg MCHC 32.9 (32.2-35.5) g/dl RDW Std Deviation 55.8 H (36.4-46.3) fL Plt Count 133 L (182-369) K/mm3 MPV 11.9 (9.4-12.3) fl Neutrophils % (Manual) 62 H (40-60) % Band Neutrophils % 0 (0-10) % Lymphocytes % (Manual) 32 (20-40) % Atypical Lymphs % 0 % Monocytes % (Manual) 6 (2-10) % Eosinophils % (Manual) 0 L (0.7-5.8) % Basophils % (Manual) 0 L (0.1-1.2) Platelet Estimate Decreased Anisocytosis 1+ slight Macrocytosis 1+ slight RBC Morph Comment Not Reportable PT 13.5 H (9.7-12.0) SECONDS INR 1.23 D-Dimer, Quantitative 0.77 H (0.19-0.50) mg/L Sodium 141 (136-145) mEq/L Potassium 3.2 L (3.5-5.1) mEq/L Chloride 103 (98-107) mEq/L Carbon Dioxide 25 (21-32) mEq/L Anion Gap 16.2 H (5-15) BUN 3 L (7-18) mg/dL Creatinine 0.7 (0.55-1.02) mg/dL Est Cr Clr Drug Dosing TNP Estimated GFR (MDRD) > 60 (>60) mL/min BUN/Creatinine Ratio 4.3 L (14-18) Glucose 107 H (70-99) mg/dL Calcium 8.9 (8.5-10.1) mg/dL Magnesium 1.4 L (1.8-2.4) mg/dL Ferritin (8-252) ng/ml Total Bilirubin 2.0 H (0.2-1.0) mg/dL Direct Bilirubin (0.0-0.2) mg/dl AST 64 H (15-37) U/L ALT 27 (14-59) U/L Alkaline Phosphatase 367 H (46-116) U/L Lactate Dehydrogenase 116 (81-234) U/L Troponin I < 0.017 (0.00-0.056) ng/mL C-Reactive Protein 1.0 (<1.0) mg/dL Total Protein 7.9 (6.4-8.2) g/dl Albumin 3.1 L (3.4-5.0) g/dl Globulin 4.8 gm/dL Albumin/Globulin Ratio 0.7 L (1-2) 04/12/21 04/12/21 Range/Units 21:20 21:20 WBC (3.98-10.04) K/mm3 RBC (3.98-5.22) M/mm3 Hgb (11.2-15.7) gm/dl Hct (34.1-44.9) % MCV (79.4-94.8) fl MCH (25.6-32.2) pg MCHC (32.2-35.5) g/dl RDW Std Deviation (36.4-46.3) fL Plt Count (182-369) K/mm3 MPV (9.4-12.3) fl Neutrophils % (Manual) (40-60) % Band Neutrophils % (0-10) % Lymphocytes % (Manual) (20-40) % Atypical Lymphs % % Monocytes % (Manual) (2-10) % Eosinophils % (Manual) (0.7-5.8) % Basophils % (Manual) (0.1-1.2) Platelet Estimate Anisocytosis Macrocytosis RBC Morph Comment PT (9.7-12.0) SECONDS INR D-Dimer, Quantitative (0.19-0.50) mg/L Sodium (136-145) mEq/L Potassium (3.5-5.1) mEq/L Chloride (98-107) mEq/L Carbon Dioxide (21-32) mEq/L Anion Gap (5-15) BUN (7-18) mg/dL Creatinine (0.55-1.02) mg/dL Est Cr Clr Drug Dosing Estimated GFR (MDRD) (>60) mL/min BUN/Creatinine Ratio (14-18) Glucose (70-99) mg/dL Calcium (8.5-10.1) mg/dL Magnesium (1.8-2.4) mg/dL Ferritin 243 (8-252) ng/ml Total Bilirubin (0.2-1.0) mg/dL Direct Bilirubin 0.80 H (0.0-0.2) mg/dl AST (15-37) U/L ALT (14-59) U/L Alkaline Phosphatase (46-116) U/L Lactate Dehydrogenase (81-234) U/L Troponin I (0.00-0.056) ng/mL C-Reactive Protein (<1.0) mg/dL Total Protein (6.4-8.2) g/dl Albumin (3.4-5.0) g/dl Globulin gm/dL Albumin/Globulin Ratio (1-2) Meds: Medications Generic Name Dose Route Start Last Admin Trade Name Freq PRN Reason Stop Dose Admin Sodium Chloride 1,000 mls @ 75 mls/hr 04/13/21 00:45 04/13/21 00:45 Normal Saline IV 04/13/21 14:04 75 mls/hr ONETIME ONE Administration Discontinued Medications Generic Name Dose Route Start Last Admin Trade Name Freq PRN Reason Stop Dose Admin Magnesium Sulfate 2 gm/ Premix 50 mls @ 25 mls/hr 04/12/21 22:36 04/12/21 22:56 IV 04/13/21 00:35 25 mls/hr ONETIME ONE Administration Potassium Chloride 10 meq/ 100 mls @ 100 mls/hr 04/12/21 23:00 04/13/21 04:38 Premix IV 04/13/21 02:59 100 mls/hr Q1H CARIN Administration Lorazepam 1 mg 04/12/21 23:46 04/13/21 00:10 Lorazepam 2 Mg/Ml Sdv IVPUSH 04/12/21 23:47 1 mg ONETIME ONE Administration Potassium Chloride 40 meq 04/12/21 22:36 04/12/21 22:56 Potassium Chloride 20 Meq Tab.Er PO 04/12/21 22:37 Not Given ONETIME ONE - Re-Assessments/Exams Free Text/Narrative Re-Assessment/Exam: 04/13/21 05:19 Patient is doing better after receiving 2 g of IV magnesium 40 mEq of IV potassi um. We will discharge her with 20 mEq packets of potassium 1 twice a day for 3 days. And she needs to find a oral supplement for magnesium roughly 400 mg daily. Departure - Departure Time of Disposition: 05:20 Disposition: Home, Self-Care 01 Clinical Impression: Hypokalemia, Hypomagnesemia - Discharge Information Prescriptions: Potassium Chloride 20 meq PO BID #6 packet Instructions: Hypomagnesemia, Hypokalemia Referrals: PCP,None [Primary Care Provider] - Forms: ED Department Discharge Additional Instructions: Return to the emergency room with any questions problems or worsening symptoms. You need to take some potassium take 1 packet twice daily for the next 3 days. You need to start a magnesium supplement that you can tolerate in the range of 250 to 400 mg daily. Follow-up with your regular healthcare provider early next week to recheck your potassium and magnesium levels and address methods to prevent these levels from dropping again. Sepsis Event Note (ED) - Focused Exam Vital Signs: Vital Signs Temp Pulse Resp BP Pulse Ox 04/13/21 05:17 83 96 04/13/21 03:03 94 16 92 L 04/12/21 21:06 36.6 C 93 16 128/105 H 98 - My Orders Last 24 Hours: My Active Orders 04/12/21 21:02 CORONAVIRUS COVID-19 DEMOND [MOLEC] Stat 04/12/21 21:19 Chest 1V Frontal [CR] Stat UA RFX HEVER AND CULT IF INDIC [URIN] Stat 04/13/21 00:45 Sodium Chloride 0.9% [Normal Saline] 1,000 ml IV ONETIME - Assessment/Plan Last 24 Hours: My Active Orders 04/12/21 21:02 CORONAVIRUS COVID-19 DEMOND [MOLEC] Stat 04/12/21 21:19 Chest 1V Frontal [CR] Stat UA RFX HEVER AND CULT IF INDIC [URIN] Stat 04/13/21 00:45 Sodium Chloride 0.9% [Normal Saline] 1,000 ml IV ONETIME
[2021-04-12] MEDS ORDERED: Magnesium Sulfate/Water 2 GM in Premix Bag 1 BAG IV ONE (22:36)
[2021-04-12] MEDS ORDERED: Potassium Chloride 20 MEQ Tab.ER PO ONE (22:36)
[2021-04-12] MEDS ORDERED: LORazepam 2 MG/ML SDV IVPUSH ONE (23:46)
[2021-04-13] MEDS: Potassium Chloride 10 MEQ in Premix Bag 1 BAG IV SCH ×4 (00:20→04:38)
[2021-04-13] MEDS ORDERED: Sodium Chloride 0.9% 1,000 ML IV ONE (00:45)
[2021-04-13 05:18] VITALS: PULSE 83
--- NOTE | 2021-04-13 06:55 | CR ---
Chest: Frontal view of the chest was obtained. Comparison: No prior chest imaging is available. Heart size and mediastinum are normal. Lungs show slight density within the right lung base. Lungs otherwise are clear. Bony structures show nothing acute. Impression: 1. Slight density within the right lung base. Difficult to exclude mild area of pneumonia if patient has infectious symptoms. If no infectious symptoms are present, noncontrast chest CT could be obtained to further evaluate. 2. Chest x-ray is otherwise unremarkable. Diagnostic code #3
== END 2021-04-13 07:50 | disposition home or self-care (01) ==
LOC: JD.ED 20:59
DX: E87.6 Hypokalemia (principal); E83.42 Hypomagnesemia; E78.00 Pure hypercholesterolemia, unspecified; E66.9 Obesity, unspecified; Z68.30 Body mass index [BMI] 30.0-30.9, adult; Z88.1 Allergy status to other antibiotic agents; Z88.5 Allergy status to narcotic agent; Z91.013 Allergy to seafood
CPT/HCPCS: 36415; 71045; 80053; 82248; 82728; 83615; 83735; 84484; 85007; 85027; 85379; 85610; 86140; 93005; 96365; 96366; 96367; 99285; J2060; J3475; J3480; J7030

== ENCOUNTER 2021-05-10 15:13 | Emergency (ER) | payer MEDICAID ==
[2021-05-10 15:37] VITALS: BP 143/90; PULSE 92
--- NOTE | 2021-05-10 15:45 | EDM.PDOC ---
ED HPI GENERAL MEDICAL PROBLEM - General Chief Complaint: General Stated Complaint: SOB NAUSEA BACK PAIN Time Seen by Provider: 05/10/21 15:35 Source of Information: Reports: Patient, RN Notes Reviewed History Limitations: Reports: No Limitations - History of Present Illness INITIAL COMMENTS - FREE TEXT/NARRATIVE: Patient is a 56-year-old female presenting to the emergency department with a number of different complaints. She reports nausea for the last few months, numbness and tingling to her upper and lower extremities, dizziness, weakness, vomiting for the last week, difficulty swallowing, unsteady gait with occasional falls (the last being approximately 1 week ago) and left-sided abdominal pain. Patient reports that the majority of the symptoms have been present for a number of months and she has been evaluated in the past for these. Patient is a chronic alcoholic and reports drinking proximately 4 drinks on a daily basis, however she has been unable to drink the last few days due to nausea and vomiting. She has a diagnosis of fibromyalgia and reports generalized pain throughout her body. She feels that her spleen is likely enlarged. She reports occasional diarrhea. Denies any fever, chest pain, or shortness of breath. Her primary care provider is located in [place]. She states that she has seen her, however cannot elaborate on what her provider found or what her instructions were for her. Feet Pain Score (Numeric/FACES): 7 - Related Data Allergies Allergy/AdvReac Type Severity Reaction Status Date / Time cephalexin [From Keflex] Allergy Swelling Verified 05/10/21 15:37 Cephalosporins Allergy Swelling Verified 05/10/21 15:37 hazelnut Allergy Cannot Verified 05/10/21 15:37 Remember naproxen [From Aleve] Allergy Anaphylactic Verified 05/10/21 15:37 Shock shellfish derived Allergy Cannot Verified 05/10/21 15:37 Remember Home Meds: Home Meds Potassium Chloride 20 meq PO BID #6 packet 04/13/21 [Rx] Gabapentin [Neurontin] 300 mg PO Q12H PRN 7 Days #14 cap 05/10/21 [Rx] Ondansetron [Zofran ODT] 4 mg PO Q6H PRN #10 tab.dis 05/10/21 [Rx] Past Medical History HEENT History: Reports: Allergic Rhinitis, Impaired Vision Other HEENT History: wears reading glasses, has removable bottom partial denture Cardiovascular History: Reports: High Cholesterol Respiratory History: Reports: Asthma Gastrointestinal History: Reports: None Genitourinary History: Reports: None 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: Musculoskeletal History: Reports: Arthritis, Osteoarthritis, Other (See Below) Other Musculoskeletal History: hip pain Neurological History: Reports: None Psychiatric History: Reports: Addiction, Anxiety, Other (See Below) Other Psychiatric History: etoh abuse Endocrine/Metabolic History: Reports: Obesity/BMI 30+ Hematologic History: Reports: Other (See Below) Other Hematologic History: hypokalemia from alcohol abuse Immunologic History: Reports: None Oncologic (Cancer) History: Reports: None Dermatologic History: Reports: Other (See Below) Other Dermatologic History: has cystic acne - Infectious Disease History Infectious Disease History: Reports: None - Past Surgical History HEENT Surgical History: Reports: Oral Surgery Female Surgical History: Reports: Tubal Ligation Musculoskeletal Surgical History: Reports: Hip Replacement Social & Family History - Caffeine Use Caffeine Use: Reports: None ED ROS GENERAL - Review of Systems Review Of Systems: See Below Constitutional: Reports: Weakness, Decreased Appetite. Denies: Fever, Chills HEENT: Reports: No Symptoms Respiratory: Reports: Shortness of Breath. Denies: Cough Cardiovascular: Reports: No Symptoms. Denies: Chest Pain, Lightheadedness, Syncope Endocrine: Reports: No Symptoms GI/Abdominal: Reports: Abdominal Pain, Diarrhea, Decreased Appetite, Nausea, Vomiting. Denies: Hematemesis, Hematochezia : Reports: No Symptoms. Denies: Dysuria, Flank Pain Musculoskeletal: Reports: Other (Pain and numbness of bilateral hands and feet. Back pain) Skin: Reports: No Symptoms Neurological: Reports: Headache. Denies: Confusion, Dizziness Psychiatric: Reports: Anxiety Hematologic/Lymphatic: Reports: No Symptoms Immunologic: Reports: No Symptoms ED EXAM, GENERAL - Physical Exam Exam: See Below Exam Limited By: No Limitations General Appearance: Alert, Anxious Eye Exam: Bilateral Eye: Normal Inspection Respiratory/Chest: No Respiratory Distress, Lungs Clear, Normal Breath Sounds, N o Accessory Muscle Use, Chest Non-Tender Cardiovascular: Normal Peripheral Pulses, Regular Rate, Rhythm, No Edema, No Gallop, No JVD, No Murmur, No Rub GI/Abdominal: Normal Bowel Sounds, Soft, No Organomegaly, No Distention, No Abnormal Bruit, No Mass, Tender (LUQ and left lateral) Extremities: Normal Inspection, Normal Range of Motion, Non-Tender, Normal Capillary Refill, No Pedal Edema Neurological: Alert, Oriented, CN II-XII Intact, Normal Cognition, Normal Reflexes, No Motor/Sensory Deficits Psychiatric: Anxious Skin Exam: Warm, Dry, Intact, No Rash, Other (sallow) #1 Interpretation EKG Date: 05/10/21 Time: 15:51 Rhythm: NSR Rate (Beats/Min): 86 [place]: Normal P-Wave: Present QRS: Normal ST-T: Normal QT: Normal Course - Vital Signs Last Recorded V/S: Last Vital Signs Temp 97.4 F 05/10/21 15:20 Pulse 92 05/10/21 15:20 Resp 15 05/10/21 15:20 BP 143/90 H 05/10/21 15:20 Pulse Ox 98 05/10/21 15:20 - Orders/Labs/Meds Orders: Active Orders 24 hr Category Date Time Status BLOOD CULTURE [MREF] Stat Lab 05/10/21 20:50 Received BLOOD CULTURE [MREF] Stat Lab 05/10/21 20:58 Received HEPATITIS PANEL (4) [REF] Routine Lab 05/10/21 20:08 Received Blood Culture x2 Reflex Set [OM.PC] Stat Oth 05/10/21 20:23 Ordered Peripheral IV Insertion Adult [OM.PC] Stat Oth 05/10/21 15:40 Ordered Labs: Laboratory Tests 05/10/21 05/10/21 05/10/21 Range/Units 06:13 06:13 16:14 WBC 6.92 (3.98-10.04) K/mm3 RBC 3.60 L (3.98-5.22) M/mm3 Hgb 12.6 (11.2-15.7) gm/dl Hct 38.3 (34.1-44.9) % MCV 106.4 H D (79.4-94.8) fl MCH 35.0 H (25.6-32.2) pg MCHC 32.9 (32.2-35.5) g/dl RDW Std Deviation 71.3 H (36.4-46.3) fL Plt Count 129 L (182-369) K/mm3 MPV 11.6 (9.4-12.3) fl Neut % (Auto) 76.5 H (34.0-71.1) % Lymph % (Auto) 16.5 L (19.3-51.7) % [place] % (Auto) 6.1 (4.7-12.5) % Eos % (Auto) 0.3 L (0.7-5.8) Baso % (Auto) 0.3 (0.1-1.2) % Neut # (Auto) 5.30 (1.56-6.13) K/mm3 Lymph # (Auto) 1.14 L (1.18-3.74) K/mm3 [place] # (Auto) 0.42 H (0.24-0.36) K/mm3 Eos # (Auto) 0.02 L (0.04-0.36) K/mm3 Baso # (Auto) 0.02 (0.01-0.08) K/mm3 PT (9.7-12.0) SECONDS INR APTT (21.7-31.4) SECONDS Sodium 138 (136-145) mEq/L Potassium 3.5 (3.5-5.1) mEq/L Chloride 102 (98-107) mEq/L Carbon Dioxide 24 (21-32) mEq/L Anion Gap 15.5 H (5-15) BUN 4 L (7-18) mg/dL Creatinine 0.7 (0.55-1.02) mg/dL Est Cr Clr Drug Dosing TNP Estimated GFR (MDRD) > 60 (>60) mL/min BUN/Creatinine Ratio 5.7 L (14-18) Glucose 102 H (70-99) mg/dL Calcium 8.9 (8.5-10.1) mg/dL Magnesium 1.5 L (1.8-2.4) mg/dL Total Bilirubin 4.0 H (0.2-1.0) mg/dL GGT 790 H (5-55) U/L AST 126 H (15-37) U/L ALT 38 (14-59) U/L Alkaline Phosphatase 493 H (46-116) U/L Ammonia (11-32) umol/L C-Reactive Protein 5.0 H* (<1.0) mg/dL Total Protein 8.0 (6.4-8.2) g/dl Albumin 2.9 L (3.4-5.0) g/dl Globulin 5.1 gm/dL Albumin/Globulin Ratio 0.6 L (1-2) Lipase 107 (73-393) U/L Urine Color (Yellow) Urine Appearance (Clear) Urine pH (5.0-8.0) Ur Specific [place] (1.005-1.030) Urine Protein (Negative) Urine Glucose (UA) (Negative) Urine Ketones (Negative) Urine Occult Blood (Negative) Urine Nitrite (Negative) Urine Bilirubin (Negative) Urine Urobilinogen (0.2-1.0) Ur Leukocyte Esterase (Negative) Urine RBC (0-5) /hpf Urine WBC (0-5) /hpf Ur Squamous Epith Cells (0-5) /hpf Amorphous Sediment (NOT SEEN) /hpf Urine Bacteria (FEW) /hpf Urine Mucus (FEW) /hpf Ethyl Alcohol (0.00) gm% SARS-CoV-2 RNA (DEMOND) Negative (NEGATIVE) 05/10/21 05/10/21 05/10/21 Range/Units 17:55 17:55 17:55 WBC (3.98-10.04) K/mm3 RBC (3.98-5.22) M/mm3 Hgb (11.2-15.7) gm/dl Hct (34.1-44.9) % MCV (79.4-94.8) fl MCH (25.6-32.2) pg MCHC (32.2-35.5) g/dl RDW Std Deviation (36.4-46.3) fL Plt Count (182-369) K/mm3 MPV (9.4-12.3) fl Neut % (Auto) (34.0-71.1) % Lymph % (Auto) (19.3-51.7) % [place] % (Auto) (4.7-12.5) % Eos % (Auto) (0.7-5.8) Baso % (Auto) (0.1-1.2) % Neut # (Auto) (1.56-6.13) K/mm3 Lymph # (Auto) (1.18-3.74) K/mm3 [place] # (Auto) (0.24-0.36) K/mm3 Eos # (Auto) (0.04-0.36) K/mm3 Baso # (Auto) (0.01-0.08) K/mm3 PT 14.0 H (9.7-12.0) SECONDS INR 1.27 APTT 32.9 H (21.7-31.4) SECONDS Sodium (136-145) mEq/L Potassium (3.5-5.1) mEq/L Chloride (98-107) mEq/L Carbon Dioxide (21-32) mEq/L Anion Gap (5-15) BUN (7-18) mg/dL Creatinine (0.55-1.02) mg/dL Est Cr Clr Drug Dosing Estimated GFR (MDRD) (>60) mL/min BUN/Creatinine Ratio (14-18) Glucose (70-99) mg/dL Calcium (8.5-10.1) mg/dL Magnesium (1.8-2.4) mg/dL Total Bilirubin (0.2-1.0) mg/dL GGT (5-55) U/L AST (15-37) U/L ALT (14-59) U/L Alkaline Phosphatase (46-116) U/L Ammonia 34 H (11-32) umol/L C-Reactive Protein (<1.0) mg/dL Total Protein (6.4-8.2) g/dl Albumin (3.4-5.0) g/dl Globulin gm/dL Albumin/Globulin Ratio (1-2) Lipase (73-393) U/L Urine Color (Yellow) Urine Appearance (Clear) Urine pH (5.0-8.0) Ur Specific [place] (1.005-1.030) Urine Protein (Negative) Urine Glucose (UA) (Negative) Urine Ketones (Negative) Urine Occult Blood (Negative) Urine Nitrite (Negative) Urine Bilirubin (Negative) Urine Urobilinogen (0.2-1.0) Ur Leukocyte Esterase (Negative) Urine RBC (0-5) /hpf Urine WBC (0-5) /hpf Ur Squamous Epith Cells (0-5) /hpf Amorphous Sediment (NOT SEEN) /hpf Urine Bacteria (FEW) /hpf Urine Mucus (FEW) /hpf Ethyl Alcohol 0.00 (0.00) gm% SARS-CoV-2 RNA (DEMOND) (NEGATIVE) 05/10/21 Range/Units 19:34 WBC (3.98-10.04) K/mm3 RBC (3.98-5.22) M/mm3 Hgb (11.2-15.7) gm/dl Hct (34.1-44.9) % MCV (79.4-94.8) fl MCH (25.6-32.2) pg MCHC (32.2-35.5) g/dl RDW Std Deviation (36.4-46.3) fL Plt Count (182-369) K/mm3 MPV (9.4-12.3) fl Neut % (Auto) (34.0-71.1) % Lymph % (Auto) (19.3-51.7) % [place] % (Auto) (4.7-12.5) % Eos % (Auto) (0.7-5.8) Baso % (Auto) (0.1-1.2) % Neut # (Auto) (1.56-6.13) K/mm3 Lymph # (Auto) (1.18-3.74) K/mm3 [place] # (Auto) (0.24-0.36) K/mm3 Eos # (Auto) (0.04-0.36) K/mm3 Baso # (Auto) (0.01-0.08) K/mm3 PT (9.7-12.0) SECONDS INR APTT (21.7-31.4) SECONDS Sodium (136-145) mEq/L Potassium (3.5-5.1) mEq/L Chloride (98-107) mEq/L Carbon Dioxide (21-32) mEq/L Anion Gap (5-15) BUN (7-18) mg/dL Creatinine (0.55-1.02) mg/dL Est Cr Clr Drug Dosing Estimated GFR (MDRD) (>60) mL/min BUN/Creatinine Ratio (14-18) Glucose (70-99) mg/dL Calcium (8.5-10.1) mg/dL Magnesium (1.8-2.4) mg/dL Total Bilirubin (0.2-1.0) mg/dL GGT (5-55) U/L AST (15-37) U/L ALT (14-59) U/L Alkaline Phosphatase (46-116) U/L Ammonia (11-32) umol/L C-Reactive Protein (<1.0) mg/dL Total Protein (6.4-8.2) g/dl Albumin (3.4-5.0) g/dl Globulin gm/dL Albumin/Globulin Ratio (1-2) Lipase (73-393) U/L Urine Color Yellow (Yellow) Urine Appearance Slt cloudy H (Clear) Urine pH 7.5 (5.0-8.0) Ur Specific [place] 1.015 (1.005-1.030) Urine Protein Negative (Negative) Urine Glucose (UA) Negative (Negative) Urine Ketones Negative (Negative) Urine Occult Blood Negative (Negative) Urine Nitrite Negative (Negative) Urine Bilirubin 1+ H (Negative) Urine Urobilinogen >=8.0 H (0.2-1.0) Ur Leukocyte Esterase Negative (Negative) Urine RBC 0-5 (0-5) /hpf Urine WBC 0-5 (0-5) /hpf Ur Squamous Epith Cells 0-5 (0-5) /hpf Amorphous Sediment Few H (NOT SEEN) /hpf Urine Bacteria Few (FEW) /hpf Urine Mucus Few (FEW) /hpf Ethyl Alcohol (0.00) gm% SARS-CoV-2 RNA (DEMOND) (NEGATIVE) Meds: Medications Discontinued Medications Generic Name Dose Route Start Last Admin Trade Name Freq PRN Reason Stop Dose Admin Diatrizoate Meglum/Diatrizoate Sod 60 ml 05/10/21 17:20 05/10/21 17:38 Diatrizoate Meglumine/Diatrizoate Sodium 37% 120 Ml Bottle PO 05/10/21 17:21 60 ml ONETIME ONE Administration Hydromorphone HCl 0.5 mg 05/10/21 16:12 05/10/21 16:32 Hydromorphone 0.5 Mg/0.5 Ml Syringe IVPUSH 05/10/21 16:13 0.5 mg ONETIME ONE Administration Sodium Chloride 1,000 mls @ 100 mls/hr 05/10/21 16:12 05/10/21 16:29 Normal Saline IV 05/11/21 02:11 100 mls/hr NOW STA Administration Magnesium Sulfate 2 gm/ Premix 50 mls @ 25 mls/hr 05/10/21 17:13 05/10/21 17:48 IV 05/10/21 19:12 25 mls/hr ONETIME ONE Administration Influenza Virus Vaccine 60 mcg 05/10/21 16:00 05/10/21 16:43 Flu Vacc [id number] 36mos Up/Pf 60 Mcg/0.5 Ml Syringe IM 05/10/21 16:01 60 mcg .ONCE ONE Administration Iopamidol 100 ml 05/10/21 17:20 05/10/21 17:38 Iopamidol 612 Mg/Ml 100 Ml Bottle IVPUSH 05/10/21 17:21 100 ml ONETIME ONE Administration Iopamidol 25 ml 05/10/21 17:20 05/10/21 17:38 Iopamidol 612 Mg/Ml 50 Ml Sdv IVPUSH 05/10/21 17:21 25 ml ONETIME ONE Administration Lorazepam 0.5 mg 05/10/21 18:38 05/10/21 19:37 Lorazepam 2 Mg/Ml Sdv IVPUSH 05/10/21 18:39 0.5 mg ONETIME ONE Administration Ondansetron HCl 4 mg 05/10/21 16:12 05/10/21 16:30 Ondansetron 4 Mg/2 Ml Sdv IVPUSH 05/10/21 16:13 4 mg ONETIME ONE Administration Sodium Chloride 10 ml 05/10/21 15:40 05/10/21 17:39 Sodium Chloride 0.9% 10 Ml Syringe FLUSH 10 ml ASDIRECTED PRN Administration Keep Vein Open - Re-Assessments/Exams Free Text/Narrative Re-Assessment/Exam: As above, patient is a 48-year-old female presenting to the emergency department with a number of different complaints, many of which are chronic. Her most acute complaint is onset of vomiting this last week. She also reports being unsteady with her gait. She is a chronic alcoholic, however is not consumed alcohol for the last 3 days due to the vomiting. She does appear somewhat anxious but there is no visible tremor. On exam, patient has left upper quadrant and left lateral abdominal tenderness. She appears sallow in color but not obviously jaundiced. No scleral icterus. Review of her previous visits show minimal elevations in total bili as well as GGT and liver enzymes. I have ordered blood work, CT scan of the abdomen pelvis with IV and oral contrast, EKG, chest x-ray, and head CT. 05/10/21 20:12 Hematology is significant for 14, APTT 32.9, magnesium 1.5, total bili 4.0, GGT 790, AST 126, alkaline phosphatase 493, ammonia 34, CRP 5.0. Lipase is normal. Blood alcohol is 0, patient is Covid negative. Chest x-ray and head CT showed no acute abnormalities. Impression of CT scan of abdomen pelvis as follows: 1. Slight diminished density within the right side of the colon raising possibility for chronic colitis. Please correlate if this matches the patient's clinical symptoms. 2. Diffuse irregular enhancement within the right and left lobes of liver. This is an interval change from prior exam and difficult to exclude diffuse hepatitis (which could be bacterial or viral) or representing other liver diseases which includes metastatic disease. Please correlate with liver enzymes. If any further questions remain, recommend MRI study with and without contrast. 3. Spleen size is slightly prominent which is stable. 4. Other findings are described above which are felt to be of no acute significance. Case was discussed with the metal weather stripper on-call at [facility], Dr. Kumar. He did not feel the patient needed emergent transfer for MRI or admission to the hospital. He recommended she abstain from alcohol completely and follow-up with her primary care provider in 1 week and with a GI specialist in 2 to 3 weeks. He recommended blood cultures to be collected prior to discharge, although there are no obvious signs of bacterial infection at this time, as well as an outpatient MRI in the near future. Results discussed with patient. She reports that she has been drinking alcohol to "treat her pain" which is likely neuropathic in nature. She describes it as [id number] and burning in her bilateral hands and feet. She has agreed to completely abstain from alcohol. patient is requesting something to help with the anxiety of her withdrawal symptoms as well as pain. She has been on gabapentin 100 mg twice daily which she states is not helping her neuropathic pain. I will increase this to 300 mg every 12 hours as needed for pain and alcohol withdrawal. She would like a referral to a primary care provider here in [place] as she does not want a follow-up with her primary care provider any longer. I will send referral to Dr. Alex Artis MD as well as GI specialist, Dr. Kumar. I emphasized to patient that it is imperative that she does not consume alcohol while taking these medications and she verbalized understanding of this. Departure - Departure Time of Disposition: 20:55 Disposition: DC/Tfer W/I Hosp To Swing 61 Condition: Good Clinical Impression: Hypomagnesemia, Primary fibromyalgia syndrome, Hepatitis Abdominal pain Qualifiers: Abdominal location: left upper quadrant Qualified Code(s): R10.12 - Left upper quadrant pain Alcohol dependence Qualifiers: Substance use status: unspecified alcohol-induced disorder Qualified Code(s): F10.29 - Alcohol dependence with unspecified alcohol-induced disorder - Discharge Information *PRESCRIPTION DRUG MONITORING PROGRAM REVIEWED*: Yes *COPY OF PRESCRIPTION DRUG MONITORING REPORT IN PATIENT TOO: No Prescriptions: Gabapentin [Neurontin] 300 mg PO Q12H PRN 7 Days #14 cap PRN Reason: Pain Ondansetron [Zofran ODT] 4 mg PO Q6H PRN #10 tab.dis PRN Reason: Nausea/Vomiting Instructions: Hypomagnesemia Referrals: Khris Lucia MD [Physician] - Kade Haney MD [Ordering Only Provider] - Forms: ED Department Discharge Additional Instructions: Abstain from all alcohol consumption Use the gabapentin only as prescribed for relief of pain and alcohol withdrawal symptoms. Use Zofran as needed for nausea. Call tomorrow morning to set up follow-up appointment with primary care provider, Dr. Forrest for next week as well as GI specialist, Dr. Kumar in 2 to 3 weeks. Return to ER for any new or worsening symptoms of concern. Sepsis Event Note (ED) - Focused Exam Vital Signs: Vital Signs Temp Pulse Resp BP Pulse Ox 05/10/21 15:20 97.4 F 92 15 143/90 H 98 - My Orders Last 24 Hours: My Active Orders 05/10/21 15:40 Peripheral IV Insertion Adult [OM.PC] Stat 05/10/21 20:08 HEPATITIS PANEL (4) [REF] Routine 05/10/21 20:23 Blood Culture x2 Reflex Set [OM.PC] Stat 05/10/21 20:50 BLOOD CULTURE [MREF] Stat 05/10/21 20:58 BLOOD CULTURE [MREF] Stat - Assessment/Plan Last 24 Hours: My Active Orders 05/10/21 15:40 Peripheral IV Insertion Adult [OM.PC] Stat 05/10/21 20:08 HEPATITIS PANEL (4) [REF] Routine 05/10/21 20:23 Blood Culture x2 Reflex Set [OM.PC] Stat 05/10/21 20:50 BLOOD CULTURE [MREF] Stat 05/10/21 20:58 BLOOD CULTURE [MREF] Stat
[2021-05-10] MEDS ORDERED: FLU Vacc QS2021-22 36MOS UP/PF 60 MCG/0.5 ML Syringe IM ONE (16:00)
[2021-05-10] MEDS ORDERED: HYDROmorphone 0.5 MG/0.5 ML Syringe IVPUSH ONE (16:12)
[2021-05-10] MEDS ORDERED: Ondansetron 4 MG/2 ML SDV IVPUSH ONE (16:12)
[2021-05-10] MEDS ORDERED: Sodium Chloride 0.9% 1,000 ML IV STA (16:12)
[2021-05-10] MEDS: Sodium Chloride 0.9% 10 ML Syringe FLUSH PRN ×2 (16:33→17:39)
[2021-05-10] MEDS ORDERED: Magnesium Sulfate/Water 2 GM in Premix Bag 1 BAG IV ONE (17:13)
[2021-05-10] MEDS ORDERED: Iopamidol 612 MG/ML 100 ML Bottle IVPUSH ONE (17:20)
[2021-05-10] MEDS ORDERED: Diatrizoate Meglumine/Diatrizoate Sodium 37% 120 ML Bottle PO ONE (17:20)
[2021-05-10] MEDS ORDERED: Iopamidol 612 MG/ML 50 ML SDV IVPUSH ONE (17:20)
--- NOTE | 2021-05-10 18:00 | CT ---
Head CT Technique: Multiple axial sections through the brain were obtained. Intravenous contrast was not utilized. Reconstructed coronal and sagittal images were obtained. Comparison: Prior head CT study of 02/21/21. Findings: Ventricles along with basal cisterns and sulci over the convexities are mildly prominent. No abnormal parenchymal densities are seen. No evidence of intracranial hemorrhage is noted. No midline shift or mass-effect is seen. Bone window settings were reviewed. Visualized mastoid sinuses and paranasal sinuses show nothing acute. No acute calvarial abnormality is appreciated. Impression: 1. Mild generalized atrophy is noted. Nothing acute is appreciated on noncontrast head CT study. 2. No change is appreciated from previous study. Diagnostic code #2
--- NOTE | 2021-05-10 18:01 | CR ---
Chest: PA and lateral views of the chest were obtained. Comparison: Prior chest x-ray of 04/12/21. Heart size and mediastinum are within normal limits. Lung markings are slightly increased within the right lung base which appears stable from prior exam and is felt to be incidental. Lungs otherwise are clear. No acute parenchymal change is seen. Bony structures appear within normal limits for the patient's age. Impression: 1. Nothing acute is suspected on 2-view chest x-ray. Diagnostic code #2
--- NOTE | 2021-05-10 18:20 | CT ---
CT abdomen and pelvis Technique: Multiple axial sections were obtained from above the dome of the diaphragm inferiorly through the pubic symphysis. Intravenous contrast was utilized. Delayed images were obtained through the bladder. Reconstructed coronal and sagittal images were obtained. Comparison: Prior CT abdomen and pelvis study of 11/13/20. Findings: Visualized lung bases show nothing acute. Liver is diffusely abnormal with ill-defined low density areas of decreased perfusion seen within the right and left lobes. This is an interval change from prior exam. Spleen size is slightly enlarged at 14.3 cm. Spleen size is felt to be fairly similar to prior study. Adrenal glands show no nodule. Pancreas shows no discrete abnormality. Gallbladder contains no calcified gallstones. Kidneys show symmetric contrast enhancement. Cyst is noted within the left kidney measuring 2.3 cm in size. Kidneys otherwise show normal enhancement with no hydronephrosis or solid mass. Abdominal aorta shows atherosclerotic change with no aneurysm. No retroperitoneal adenopathy is seen. No mesenteric abnormalities are seen. Appendix is seen which is normal in size. Right colon shows slight diminished density within the colonic wall. These findings are slightly more prominent on the current study raising the possibility of a mild chronic colitis. Please correlate with the patient's symptoms. Diverticuli are seen within the sigmoid colon and descending colon. No inflammatory change is appreciated to indicate diverticulitis. Some portions of the pelvis are obscured by bilateral hip prostheses. Delayed images show contrast within the distal ureters and within the bladder. Bone window settings were reviewed which show only very minimal degenerative change within the spine. Impression: 1. Slight diminished density within the right side of the colon raising the possibility of chronic colitis. Please correlate if this matches the patient's clinical symptoms. 2. Diffuse irregular enhancement within the right and left lobes of the liver. This is an interval change from prior exam and difficult to exclude diffuse hepatitis (which could be bacterial or viral) or representing other liver disease which includes metastatic disease. Please correlate with liver enzymes. If any further questions remain, recommend MRI study without and with contrast. 3. Spleen size is slightly prominent which is stable. 4. Other findings as described above which are felt to be of no acute significance. Diagnostic code #3
[2021-05-10] MEDS ORDERED: LORazepam 2 MG/ML SDV IVPUSH ONE (18:38)
== END 2021-05-10 21:16 | disposition swing bed (61) ==
LOC: JD.ED 15:13
DX: E83.42 Hypomagnesemia (principal); K75.9 Inflammatory liver disease, unspecified; M79.7 Fibromyalgia; F10.29 Alcohol dependence with unspecified alcohol-induced disorder; Z23 Encounter for immunization; E66.9 Obesity, unspecified; Z88.1 Allergy status to other antibiotic agents; Z91.018 Allergy to other foods; Z88.8 Allergy status to other drugs, medicaments and biological substances; Z91.013 Allergy to seafood; Z79.899 Other long term (current) drug therapy; Z20.822 Contact with and (suspected) exposure to COVID-19
CPT/HCPCS: 36415; 70450; 71046; 74177; 80053; 80074; 80307; 81001; 82140; 82977; 83690; 83735; 85025; 85610; 85730; 86140; 87040; 87635; 90471; 90686; 93005; 96365; 96366; 96375; 99285; J1170; J2060; J2405; J3475; J7030; Q9963; Q9967; G0008; U0002

== ENCOUNTER 2021-12-15 15:44 | Emergency (ER) | payer MEDICAID ==
[2021-12-15 16:45] VITALS: BP 131/71; PULSE 77
[2021-12-15] MEDS ORDERED: Sodium Chloride 0.9% 1,000 ML IV STA (16:54)
[2021-12-15] MEDS ORDERED: Ondansetron 4 MG/2 ML SDV IVPUSH ONE (17:07)
[2021-12-15] MEDS ORDERED: Famotidine 20 MG/2 ML SDV IVPUSH ONE (17:07)
[2021-12-15] MEDS ORDERED: HYDROmorphone 1 MG/ML Syringe IVPUSH ONE (17:07)
[2021-12-15] MEDS: Sodium Chloride 0.9% 10 ML Syringe FLUSH PRN ×2 (17:25→18:51)
[2021-12-15] MEDS ORDERED: Iopamidol 612 MG/ML 100 ML Bottle IVPUSH ONE (18:42)
[2021-12-15] MEDS ORDERED: Iopamidol 612 MG/ML 50 ML SDV IVPUSH ONE (18:42)
== END 2021-12-15 20:28 | disposition home or self-care (01) ==
LOC: JD.ED 15:44
DX: K29.80 Duodenitis without bleeding (principal); E78.00 Pure hypercholesterolemia, unspecified; E66.9 Obesity, unspecified; Z91.013 Allergy to seafood; Z88.1 Allergy status to other antibiotic agents; Z88.8 Allergy status to other drugs, medicaments and biological substances; Z79.899 Other long term (current) drug therapy; Z72.0 Tobacco use; Z68.27 Body mass index [BMI] 27.0-27.9, adult
CPT/HCPCS: 36415; 74177; 80053; 81001; 83690; 85025; 96361; 96374; 96375; 99284; J1170; J2405; J3490; J7030; Q9967

== ENCOUNTER 2022-01-25 08:58 | Day surgery (SDC) | payer MEDICAID ==
[~2022-01-25 08:58] MED LIST changes: +Sodium Chloride 0.9% 10 ML Syringe FLUSH SCH
[2022-01-25] MEDS ORDERED: Propofol 200 MG/20 ML SDV ONE (10:07)
[2022-01-25] MEDS ORDERED: fentaNYL 100 MCG/2 ML SDV ONE (10:07)
[2022-01-25] MEDS ORDERED: Lidocaine 1% 4 ML ONE (10:07)
[2022-01-25] MEDS ORDERED: Lactated Ringers 1,000 ML ONE (11:06)
[2022-01-25 11:55] VITALS: BP 96/65
[2022-01-25 12:04] VITALS: PULSE 68
== END 2022-01-25 12:15 | disposition home or self-care (01) ==
LOC: JD.SDS 08:58
PROVIDERS: ATTEND Surgery
DX: K20.90 Esophagitis, unspecified without bleeding (principal); G89.29 Other chronic pain; F17.210 Nicotine dependence, cigarettes, uncomplicated; F41.9 Anxiety disorder, unspecified; E78.00 Pure hypercholesterolemia, unspecified; J45.909 Unspecified asthma, uncomplicated; Z88.8 Allergy status to other drugs, medicaments and biological substances; Z91.013 Allergy to seafood; Z79.899 Other long term (current) drug therapy; Z98.890 Other specified postprocedural states
CPT/HCPCS: 43239; J2704; J3010; J7120; 00731

== ENCOUNTER 2022-02-08 01:01 | Emergency (ER) | payer MEDICAID ==
[2022-02-08] MEDS ORDERED: Sodium Chloride 0.9% 10 ML Syringe FLUSH PRN (01:15)
[2022-02-08 01:23] VITALS: PULSE 98
[2022-02-08] MEDS ORDERED: HYDROmorphone 0.5 MG/0.5 ML Syringe IVPUSH ONE ×5 (01:25→14:49)
[2022-02-08] MEDS ORDERED: Famotidine 20 MG/2 ML SDV IVPUSH ONE (01:25)
[2022-02-08] MEDS ORDERED: Ondansetron 4 MG/2 ML SDV IVPUSH ONE (01:25)
[2022-02-08] MEDS ORDERED: Sodium Chloride 0.9% 1,000 ML IV SCH (01:30)
[2022-02-08 02:00] LABS: ESTIMATED GFR 100 mL/min (>60)
[2022-02-08] MEDS ORDERED: LORazepam 2 MG/ML SDV IVPUSH ONE ×3 (02:38→14:49)
[2022-02-08] MEDS ORDERED: Gabapentin 300 MG Cap PO ONE ×3 (08:27→16:00)
[2022-02-08 13:32] VITALS: BP 99/58
[2022-02-08] MEDS ORDERED: Potassium Chloride 10 MEQ in Premix Bag 1 BAG IV SCH (14:30)
[2022-02-08] MEDS ORDERED: Dextrose 5%-Lactated Ringers 1,000 ML IV SCH (14:45)
== END 2022-02-08 15:55 ==
LOC: JD.ED 01:01
DX: K86.1 Other chronic pancreatitis (principal); E87.6 Hypokalemia; J45.909 Unspecified asthma, uncomplicated; E66.9 Obesity, unspecified; Z68.30 Body mass index [BMI] 30.0-30.9, adult; Z88.1 Allergy status to other antibiotic agents; Z91.018 Allergy to other foods; Z91.013 Allergy to seafood; Z88.8 Allergy status to other drugs, medicaments and biological substances; Z79.899 Other long term (current) drug therapy; Z20.822 Contact with and (suspected) exposure to COVID-19
CPT/HCPCS: 36415; 74181; 76705; 80053; 80307; 82248; 82977; 83690; 85025; 86140; 87635; 93005; 96361; 96365; 96375; 96376; 99285; A9270; J1170; J2060; J2405; J3480; J3490; J7030; J7121; U0002

== ENCOUNTER 2022-02-26 14:35 | Emergency (ER) | payer MEDICAID | END 2022-02-26 15:33 | LOC: JD.ED 14:35 | DX: Z53.21 Procedure and treatment not carried out due to patient leaving prior to being seen by health care provider (principal) ==

== ENCOUNTER 2022-03-15 13:52 | Inpatient (IN) | payer MEDICAID ==
[2022-03-15] MEDS ORDERED: Sodium Chloride 0.9% 10 ML Syringe FLUSH PRN ×2 (14:25→16:24)
[2022-03-15] MEDS ORDERED: Sodium Chloride 0.9% 1,000 ML IV ONE (14:27)
[2022-03-15] MEDS ORDERED: HYDROmorphone 0.5 MG/0.5 ML Syringe IVPUSH ONE ×2 (14:27→18:29)
[2022-03-15] MEDS ORDERED: Ondansetron 4 MG/2 ML SDV IVPUSH ONE ×2 (14:27→19:04)
[2022-03-15] MEDS ORDERED: Iopamidol 612 MG/ML 100 ML Bottle IVPUSH ONE (16:24)
[2022-03-15] MEDS ORDERED: Gabapentin 600 MG Tab PO ONE (17:56)
[2022-03-15] MEDS ORDERED: Docusate Sodium 100 MG Cap PO PRN (18:52)
[2022-03-15] MEDS ORDERED: Heparin Sodium 5,000 Units/ML Vial SUBCUT SCH (19:00)
[2022-03-15] MEDS: Sodium Chloride 0.9% 1,000 ML IV SCH (21:54)
[2022-03-15] MEDS: oxyCODONE 5 MG Tab PO PRN (22:15)
[2022-03-15] MEDS: Ondansetron 4 MG Tab.DIS PO PRN (22:17)
[2022-03-15] MEDS: Heparin Sodium 5,000 Units/ML Vial SUBCUT SCH (22:17)
[2022-03-16] MEDS: oxyCODONE 5 MG Tab PO PRN ×5 (02:34→21:31)
[2022-03-16] MEDS: Ondansetron 4 MG Tab.DIS PO PRN ×2 (02:34→07:44)
[2022-03-16] MEDS: Heparin Sodium 5,000 Units/ML Vial SUBCUT SCH ×3 (05:48→21:33)
[2022-03-16] MEDS ORDERED: Magnesium Sulfate (4.06 MEQ/ML) 5 GM/10 ML SDV IV ONE (11:15)
[2022-03-16] MEDS: Potassium Chloride 10 MEQ in Premix Bag 1 BAG IV SCH ×4 (12:11→15:50)
[2022-03-16] MEDS: Promethazine 25 MG/ML SDV IM PRN ×2 (12:11→18:44)
[2022-03-16] MEDS: Sodium Chloride 0.9% 1,000 ML IV SCH (12:12)
[2022-03-16] MEDS ORDERED: Magnesium Sulfate/Water 2 GM in Premix Bag 1 BAG IV ONE (15:30)
[2022-03-17] MEDS: Sodium Chloride 0.9% 1,000 ML IV SCH ×2 (00:43→15:52)
[2022-03-17] MEDS: Promethazine 25 MG/ML SDV IM PRN ×3 (01:51→16:34)
[2022-03-17] MEDS: oxyCODONE 5 MG Tab PO PRN ×3 (01:53→09:54)
[2022-03-17] MEDS: Heparin Sodium 5,000 Units/ML Vial SUBCUT SCH ×3 (05:23→21:13)
[2022-03-17] MEDS ORDERED: Magnesium Sulfate/Water 2 GM/50 ML BAG IV ONE (06:39)
[2022-03-17] MEDS ORDERED: Potassium Bicarbonate/Cit Ac 20 MEQ Effervescent Tab PO ONE (06:40)
[2022-03-17] MEDS: Morphine 2 MG/ML SYRINGE IVPUSH PRN ×3 (12:07→21:32)
[2022-03-17] MEDS: Pantoprazole 40 MG Tab.CR PO SCH (12:19)
[2022-03-17] MEDS: hydrOXYzine HCl 10 MG Tab PO PRN (12:20)
[2022-03-17] MEDS: ALPRAZolam 0.5 MG Tab PO PRN (12:20)
[2022-03-17] MEDS ORDERED: Magnesium Hydroxide 400 MG/5 ML Susp 30 ML Cup PO ONE (21:00)
[2022-03-18] MEDS: ALPRAZolam 0.5 MG Tab PO PRN ×3 (01:31→19:40)
[2022-03-18] MEDS: Promethazine 25 MG/ML SDV IM PRN ×2 (02:58→09:02)
[2022-03-18] MEDS: Morphine 2 MG/ML SYRINGE IVPUSH PRN ×2 (02:59→08:36)
[2022-03-18] MEDS: Heparin Sodium 5,000 Units/ML Vial SUBCUT SCH ×3 (05:44→21:51)
[2022-03-18] MEDS: Sodium Chloride 0.9% 1,000 ML IV SCH (05:44)
[2022-03-18] MEDS: Pantoprazole 40 MG Tab.CR PO SCH (08:02)
[2022-03-18] MEDS ORDERED: Magnesium Sulfate/Water 2 GM/50 ML BAG IV ONE (08:30)
[2022-03-18] MEDS ORDERED: Magnesium Citrate Solution 296 ML Bottle PO ONE (10:05)
[2022-03-18] MEDS ORDERED: Furosemide 20 MG/2 ML VIAL IVPUSH ONE (10:30)
[2022-03-18] MEDS ORDERED: Sodium Chloride 0.9% 10 ML Syringe FLUSH PRN (10:30)
[2022-03-18] MEDS ORDERED: Polyethylene Glycol 3350 Powder 17 GM Packet PO ONE (11:00)
[2022-03-18] MEDS: oxyCODONE 5 MG Tab PO PRN ×2 (12:38→19:38)
[2022-03-18] MEDS: hydrOXYzine HCl 10 MG Tab PO PRN ×2 (12:39→19:40)
[2022-03-19] MEDS: oxyCODONE 5 MG Tab PO PRN ×4 (03:25→20:47)
[2022-03-19] MEDS: ALPRAZolam 0.5 MG Tab PO PRN ×3 (03:25→20:47)
[2022-03-19] MEDS: Heparin Sodium 5,000 Units/ML Vial SUBCUT SCH ×4 (06:58→22:00)
[2022-03-19] MEDS: Pantoprazole 40 MG Tab.CR PO SCH (08:45)
[2022-03-19] MEDS: Potassium Chloride 20 MEQ Tab.ER PO SCH ×3 (09:07→20:44)
[2022-03-20] MEDS: hydrOXYzine HCl 10 MG Tab PO PRN (02:12)
[2022-03-20] MEDS: Heparin Sodium 5,000 Units/ML Vial SUBCUT SCH ×3 (05:28→21:22)
[2022-03-20] MEDS: ALPRAZolam 0.5 MG Tab PO PRN (05:29)
[2022-03-20] MEDS: oxyCODONE 5 MG Tab PO PRN ×3 (05:29→21:21)
[2022-03-20] MEDS: Pantoprazole 40 MG Tab.CR PO SCH (08:54)
[2022-03-20] MEDS: Gabapentin 300 MG Cap PO SCH ×2 (14:36→21:21)
[2022-03-20] MEDS ORDERED: traZODone 50 MG Tab PO SCH (21:00)
[2022-03-21] MEDS: Heparin Sodium 5,000 Units/ML Vial SUBCUT SCH (05:16)
[2022-03-21] MEDS: Magnesium Hydroxide 400 MG/5 ML Susp 30 ML Cup PO ONE ×2 (05:16→06:09)
[2022-03-21 06:49] VITALS: BP 90/48; PULSE 111
[2022-03-21] MEDS ORDERED: Meropenem 1 GM in Sodium Chloride 0.9% 100 ML IV ONE (08:30)
[2022-03-21] MEDS ORDERED: VANCOmycin 1.25 GM/250 ML 1.25 GM in Premix Bag 1 BAG IV ONE (08:30)
[2022-03-21] MEDS ORDERED: Fluticasone NASAL Spray 16 GM Bottle NASBOTH SCH (09:00)
[2022-03-21] MEDS ORDERED: Folic Acid 1 MG Tab PO SCH (09:00)
== END 2022-03-21 09:15 | DRG 177 ==
LOC: JD.ED 13:52 → JD.MS 19:48 → OBSVTOIN 03-18 14:24
PROVIDERS: ADMIT Internal Medicine; ATTEND Internal Medicine
PROC: 8E0ZXY6 Isolation (ICD-10-PCS; principal; 2022-03-18)
DX: U07.1 COVID-19 (principal); J96.01 Acute respiratory failure with hypoxia; F10.29 Alcohol dependence with unspecified alcohol-induced disorder; J45.909 Unspecified asthma, uncomplicated; E78.00 Pure hypercholesterolemia, unspecified; F41.9 Anxiety disorder, unspecified; Z96.643 Presence of artificial hip joint, bilateral; F17.210 Nicotine dependence, cigarettes, uncomplicated; R10.84 Generalized abdominal pain; M79.7 Fibromyalgia; E87.6 Hypokalemia; I27.20 Pulmonary hypertension, unspecified; K70.31 Alcoholic cirrhosis of liver with ascites; G47.00 Insomnia, unspecified; E66.9 Obesity, unspecified; Z68.29 Body mass index [BMI] 29.0-29.9, adult; Z88.8 Allergy status to other drugs, medicaments and biological substances; Z88.1 Allergy status to other antibiotic agents; Z91.013 Allergy to seafood; Z79.52 Long term (current) use of systemic steroids; Z79.899 Other long term (current) drug therapy; Z97.3 Presence of spectacles and contact lenses; Z87.19 Personal history of other diseases of the digestive system; Z86.16 Personal history of COVID-19; Z90.49 Acquired absence of other specified parts of digestive tract; Z98.51 Tubal ligation status; Z90.89 Acquired absence of other organs; Z98.890 Other specified postprocedural states
CPT/HCPCS: 36415; 71045; 71045-26; 74177; 74177-26; 76705; 76705-26; 80053; 80307; 81001; 82947; 83605; 83690; 83735; 84484; 85025; 85610; 85730; 86140; 96361; 96365; 96366; 96367; 96372; 96374; 96375; 96376; 97116-GP; 97162-GP; 97166-GO; 97530-GO; 97530-GP; 97535-GO; 99284; 99285-25; A9270-GY; G0378; J1170; J1644; J1940; J2270; J2405; J2550; J3475; J3480; J3490; J7030; Q9967

== ENCOUNTER 2022-03-21 05:27 | Emergency (ER) | payer MEDICAID ==
[2022-03-21 06:20] LABS: ESTIMATED GFR 52 mL/min (>60)
[2022-03-21 07:01] VITALS: BP 65/47; PULSE 80
[2022-03-21] MEDS ORDERED: fentaNYL 100 MCG/2 ML SDV IVPUSH ONE ×2 (07:25→07:49)
[2022-03-21] MEDS ORDERED: fentaNYL 100 MCG/2 ML SDV ONE (07:42)
[2022-03-21] MEDS ORDERED: propofoL 100 ML ONE (07:45)
[2022-03-21] MEDS ORDERED: Sodium Chloride 0.9% 1,000 ML IV ONE ×2 (07:51→08:31)
[2022-03-21] MEDS ORDERED: Rocuronium 50 MG/5 ML Vial IVPUSH ONE (07:52)
[2022-03-21] MEDS ORDERED: Midazolam 1 MG/ML 5 ML SDV IVPUSH ONE (07:52)
[2022-03-21] MEDS ORDERED: Succinylcholine 200 MG/10 ML MDV ONE (08:00)
[2022-03-21] MEDS ORDERED: Midazolam 1 MG/ML 5 ML SDV ONE (08:00)
[2022-03-21] MEDS ORDERED: Ketamine 500 mg/10 ML MDV ONE (08:00)
[2022-03-21] MEDS ORDERED: Meropenem 1 GM SDV IVPUSH ONE (08:02)
[2022-03-21] MEDS ORDERED: Vancomycin 2 GM in Sodium Chloride 0.9% 500 ML IV ONE (08:03)
[2022-03-21] MEDS ORDERED: Norepinephrine 4 MG in Dextrose 5% in Water 246 ML IV SCH ×2 (08:15)
[2022-03-21] MEDS ORDERED: Iopamidol 755 Mg/ML 100 ML Bottle IVPUSH ONE (08:19)
[2022-03-21] MEDS ORDERED: Sodium Chloride 0.9% 10 ML Syringe FLUSH PRN (08:19)
[2022-03-21] MEDS ORDERED: Sodium Chloride 0.9% 100 ML IV SCH (08:30)
[2022-03-21] MEDS ORDERED: propofoL 100 ML IV SCH (10:00)
== END 2022-03-21 09:15 ==
LOC: JD.ED 05:27
DX: A41.9 Sepsis, unspecified organism (principal); R65.21 Severe sepsis with septic shock; U07.1 COVID-19; J96.01 Acute respiratory failure with hypoxia; K72.90 Hepatic failure, unspecified without coma; K70.31 Alcoholic cirrhosis of liver with ascites; M19.90 Unspecified osteoarthritis, unspecified site; E72.20 Disorder of urea cycle metabolism, unspecified; E66.9 Obesity, unspecified; Z68.30 Body mass index [BMI] 30.0-30.9, adult; Z86.16 Personal history of COVID-19; Z91.013 Allergy to seafood; Z88.1 Allergy status to other antibiotic agents; Z88.5 Allergy status to narcotic agent; Z79.899 Other long term (current) drug therapy
CPT/HCPCS: 31500; 36415; 36600; 43752; 51702; 71045; 71275; 80053; 81001; 82140; 82803; 83605; 85007; 85027; 85379; 96365; 96375; 96376; 99285; J0330; J2250; J2704; J3010; J3490; J7030; J7060; Q9967; 99291

== ENCOUNTER 2022-04-08 12:25 | Inpatient (IN) | payer MEDICAID ==
[2022-04-08] MEDS ORDERED: LORazepam 2 MG/ML SDV IVPUSH ONE (13:29)
[2022-04-08] MEDS ORDERED: Iopamidol 612 MG/ML 100 ML Bottle IVPUSH ONE (13:38)
[2022-04-08] MEDS: Sodium Chloride 0.9% 10 ML Syringe FLUSH PRN ×2 (14:34→14:37)
[2022-04-08 14:49] LABS: ESTIMATED GFR 58 mL/min (>60)
[2022-04-08] MEDS ORDERED: Sodium Chloride 0.9% 10 ML Syringe FLUSH PRN (16:33)
[2022-04-08] MEDS: LORazepam 2 MG/ML SDV IV PRN (17:31)
[2022-04-08] MEDS: Ondansetron 4 MG Tab.DIS PO PRN (17:32)
[2022-04-08] MEDS ORDERED: Bumetanide 1 MG/4 ML MDV IVPUSH ONE (18:24)
[2022-04-08] MEDS ORDERED: Piperacillin/Tazobactam 4.5 GM in Sodium Chloride 0.9% 100 ML IV ONE (18:25)
[2022-04-08] MEDS: Pantoprazole 40 MG Tab.CR PO SCH (20:16)
[2022-04-08] MEDS: Gabapentin 600 MG Tab PO SCH (20:16)
[2022-04-08] MEDS: traMADol 50 MG Tab PO PRN (20:36)
[2022-04-09] MEDS: LORazepam 2 MG/ML SDV IV PRN ×3 (03:41→20:32)
[2022-04-09] MEDS: Pantoprazole 40 MG Tab.CR PO SCH (08:00)
[2022-04-09] MEDS: Gabapentin 600 MG Tab PO SCH ×3 (08:00→20:31)
[2022-04-09] MEDS: Spironolactone 100 MG Tab PO SCH (08:00)
[2022-04-09] MEDS ORDERED: Furosemide 40 MG Tab PO SCH (09:00)
[2022-04-09] MEDS: hydrOXYzine HCl 25 MG Tab PO SCH ×2 (11:07→18:26)
[2022-04-09] MEDS: methylPREDNISolone Sodium Succinate 40 MG/1 ML SDV IVPUSH SCH ×2 (11:09→18:24)
[2022-04-10] MEDS: hydrOXYzine HCl 25 MG Tab PO SCH ×3 (02:05→17:02)
[2022-04-10] MEDS: methylPREDNISolone Sodium Succinate 40 MG/1 ML SDV IVPUSH SCH ×3 (02:05→17:00)
[2022-04-10] MEDS: Pantoprazole 40 MG Tab.CR PO SCH (08:32)
[2022-04-10] MEDS: Gabapentin 600 MG Tab PO SCH ×3 (08:32→20:55)
[2022-04-10] MEDS: Spironolactone 100 MG Tab PO SCH (08:35)
[2022-04-10] MEDS: traMADol 50 MG Tab PO PRN ×2 (12:24→19:58)
[2022-04-10] MEDS: LORazepam 0.5 MG Tab PO PRN ×2 (14:42→20:55)
[2022-04-10] MEDS: Ondansetron 4 MG Tab.DIS PO PRN (18:40)
[2022-04-11] MEDS: hydrOXYzine HCl 25 MG Tab PO SCH ×2 (02:45→11:01)
[2022-04-11] MEDS: methylPREDNISolone Sodium Succinate 40 MG/1 ML SDV IVPUSH SCH ×2 (02:45→11:00)
[2022-04-11] MEDS: LORazepam 0.5 MG Tab PO PRN (03:40)
[2022-04-11] MEDS: traMADol 50 MG Tab PO PRN (03:40)
[2022-04-11 10:21] VITALS: BP 127/77; PULSE 80
[2022-04-11] MEDS: Spironolactone 100 MG Tab PO SCH (11:00)
[2022-04-11] MEDS: Pantoprazole 40 MG Tab.CR PO SCH (11:01)
[2022-04-11] MEDS: Gabapentin 600 MG Tab PO SCH (11:01)
== END 2022-04-11 11:24 | disposition home health service (06) | DRG 433 ==
LOC: JD.ED 12:25 → UNDOADMIN 16:34 → JD.ICU 16:34 → JD.ED 18:44 → JD.ICU 20:10 → JD.MS 04-09 18:29 → JD.ICU 04-09 19:00
PROVIDERS: ADMIT Pediatrics; ATTEND Pediatrics
PROC: 0W9G3ZZ Drainage of Peritoneal Cavity, Percutaneous Approach (ICD-10-PCS; principal; 2022-04-08)
DX: K70.11 Alcoholic hepatitis with ascites (principal); L51.1 Stevens-Johnson syndrome; E72.20 Disorder of urea cycle metabolism, unspecified; E87.1 Hypo-osmolality and hyponatremia; K86.1 Other chronic pancreatitis; L27.1 Localized skin eruption due to drugs and medicaments taken internally; K70.31 Alcoholic cirrhosis of liver with ascites; K72.10 Chronic hepatic failure without coma; D63.8 Anemia in other chronic diseases classified elsewhere; T50.1X5A Adverse effect of loop [high-ceiling] diuretics, initial encounter; R21 Rash and other nonspecific skin eruption; J44.9 Chronic obstructive pulmonary disease, unspecified; F41.9 Anxiety disorder, unspecified; H54.7 Unspecified visual loss; E78.00 Pure hypercholesterolemia, unspecified; J45.909 Unspecified asthma, uncomplicated; M19.90 Unspecified osteoarthritis, unspecified site; M79.7 Fibromyalgia; G47.00 Insomnia, unspecified; Z96.643 Presence of artificial hip joint, bilateral; E66.9 Obesity, unspecified; Z86.19 Personal history of other infectious and parasitic diseases; Z88.1 Allergy status to other antibiotic agents; Z86.16 Personal history of COVID-19; Z91.018 Allergy to other foods; Z91.013 Allergy to seafood; Z88.6 Allergy status to analgesic agent; Z79.899 Other long term (current) drug therapy; Z98.51 Tubal ligation status; Z87.891 Personal history of nicotine dependence; Z68.24 Body mass index [BMI] 24.0-24.9, adult
CPT/HCPCS: 36415; 71045; 71045-26; 74177; 74177-26; 80053; 80307; 81001; 82140; 82947; 83540; 83605; 83690; 84484; 85025; 86140; 87040; 87070; 87205; 87641; 89050; 93005; 93010; 96374; 96376; 97110-GP; 97116-GP; 97162-GP; 97166-GO; 97530-GO; 97530-GP; 99232; 99233; 99239; 99285; 99285-25; A9270-GY; J2060; J2543; J2920; J3490; Q9967

== ENCOUNTER 2022-06-25 13:25 | Emergency (ER) | payer MEDICAID ==
[2022-06-25] MEDS ORDERED: Sodium Chloride 0.9% 10 ML Syringe FLUSH PRN (14:11)
[2022-06-25] MEDS ORDERED: HYDROmorphone 0.5 MG/0.5 ML Syringe IVPUSH ONE ×2 (14:11→16:08)
[2022-06-25] MEDS ORDERED: Ondansetron 4 MG/2 ML SDV IVPUSH ONE (14:11)
[2022-06-25 15:05] LABS: ESTIMATED GFR 74 mL/min (>60)
[2022-06-25 15:35] LABS: CORONAVIRUS COVID-19 NAA NEGATIVE (NEGATIVE)
[2022-06-25] MEDS ORDERED: Lidocaine 1% 10 ML MDV ONE (16:09)
[2022-06-25 17:07] VITALS: BP 114/56; PULSE 89
== END 2022-06-25 16:47 | disposition home or self-care (01) ==
LOC: JD.ED 13:25
DX: B34.9 Viral infection, unspecified (principal); E78.00 Pure hypercholesterolemia, unspecified; M19.90 Unspecified osteoarthritis, unspecified site; E66.9 Obesity, unspecified; Z68.30 Body mass index [BMI] 30.0-30.9, adult; Z91.013 Allergy to seafood; Z88.1 Allergy status to other antibiotic agents; Z88.8 Allergy status to other drugs, medicaments and biological substances; Z20.822 Contact with and (suspected) exposure to COVID-19
CPT/HCPCS: 0240U; 36415; 80053; 85025; 86140; 96374; 96375; 99284; J1170; J2405; J3490

== ENCOUNTER 2022-09-20 15:04 | Emergency (ER) | payer MEDICAID ==
[2022-09-20 15:19] VITALS: BP 135/76; PULSE 92
[2022-09-20] MEDS ORDERED: Lidocaine 1% 10 ML MDV INJECT ONE (16:59)
[2022-09-20] MEDS ORDERED: Metoclopramide 10 MG/2 ML SDV IVPUSH ONE (17:10)
[2022-09-20] MEDS ORDERED: HYDROmorphone 0.5 MG/0.5 ML Syringe IVPUSH ONE (17:10)
[2022-09-20] MEDS ORDERED: LORazepam 2 MG/ML SDV IVPUSH ONE (17:11)
[2022-09-20] MEDS ORDERED: Albumin 25% 12.5 GM/50 ML BAG IV ONE (17:53)
== END 2022-09-20 19:47 | disposition home or self-care (01) ==
LOC: JD.ED 15:04
DX: K70.31 Alcoholic cirrhosis of liver with ascites (principal); J44.9 Chronic obstructive pulmonary disease, unspecified; R09.02 Hypoxemia; J45.909 Unspecified asthma, uncomplicated; M19.90 Unspecified osteoarthritis, unspecified site; E66.9 Obesity, unspecified; Z68.23 Body mass index [BMI] 23.0-23.9, adult; Z87.891 Personal history of nicotine dependence; Z88.1 Allergy status to other antibiotic agents; Z91.018 Allergy to other foods; Z88.6 Allergy status to analgesic agent; Z91.013 Allergy to seafood; Z88.8 Allergy status to other drugs, medicaments and biological substances; Z79.899 Other long term (current) drug therapy; Z98.890 Other specified postprocedural states
CPT/HCPCS: 96365; 96375; 99284; J1170; J2060; J2765; P9047

== ENCOUNTER 2022-10-12 14:32 | Emergency (ER) | payer MEDICAID ==
[2022-10-12] MEDS ORDERED: HYDROmorphone 0.5 MG/0.5 ML Syringe IM ONE (16:05)
[2022-10-12 19:07] VITALS: BP 107/62; PULSE 81
== END 2022-10-12 18:32 | disposition home or self-care (01) ==
LOC: JD.ED 14:32
DX: K70.31 Alcoholic cirrhosis of liver with ascites (principal); J45.909 Unspecified asthma, uncomplicated; M19.90 Unspecified osteoarthritis, unspecified site; E66.9 Obesity, unspecified; Z68.33 Body mass index [BMI] 33.0-33.9, adult; Z86.16 Personal history of COVID-19; Z88.1 Allergy status to other antibiotic agents; Z91.018 Allergy to other foods; Z88.8 Allergy status to other drugs, medicaments and biological substances; Z91.013 Allergy to seafood; Z91.048 Other nonmedicinal substance allergy status; Z88.6 Allergy status to analgesic agent; Z79.899 Other long term (current) drug therapy
CPT/HCPCS: 36415; 49082; 80053; 96372; 99284; J1170

== ENCOUNTER 2022-11-30 14:44 | Emergency (ER) | payer MEDICAID ==
[2022-11-30] MEDS ORDERED: Sodium Chloride 0.9% 10 ML Syringe FLUSH PRN (15:20)
[2022-11-30] MEDS ORDERED: HYDROmorphone 0.5 MG/0.5 ML Syringe IVPUSH ONE ×2 (15:21→18:26)
[2022-11-30 16:13] LABS: BASOPHILS ABSOLUTE AUTO 0.05 K/mm3 (0.01-0.08); BASOPHILS PERCENT AUTO 0.6 % (0.1-1.2); EOSINOPHILS ABSOLUTE AUTO 0.06 K/mm3 (0.04-0.36); EOSINOPHILS PERCENT AUTO 0.7 (0.7-5.8); HEMATOCRIT 28.9 % (34.1-44.9); HEMOGLOBIN 9.6 gm/dl (11.2-15.7); IMMATURE GRAN ABSOLUTE AUTO 0.02 K/mm3 (0.00-0.10); IMMATURE GRAN PERCENT AUTO 0.2 % (<=1.0); LYMPHOCYTES ABSOLUTE AUTO 1.82 K/mm3 (1.18-3.74); LYMPHOCYTES PERCENT AUTO 20.7 % (19.3-51.7); MEAN CORPUSCULAR HEMOGLOBIN 31.6 pg (25.6-32.2); MEAN CORPUSCULAR HGB CONC 33.2 g/dl (32.2-35.5); MEAN CORPUSCULAR VOLUME 95.1 fl (79.4-94.8); MEAN PLATELET VOLUME 9.5 fl (9.4-12.3); MONOCYTES ABSOLUTE AUTO 0.95 K/mm3 (0.24-0.36); MONOCYTES PERCENT AUTO 10.8 % (4.7-12.5); NEUTROPHILS ABSOLUTE AUTO 5.89 K/mm3 (1.56-6.13); PLATELET COUNT,PLT 396 K/mm3 (182-369); RED BLOOD CELL COUNT 3.04 M/mm3 (3.98-5.22); WHITE BLOOD CELL COUNT,WBC 8.79 K/mm3 (3.98-10.04)
[2022-11-30] MEDS ORDERED: Ondansetron 4 MG/2 ML SDV IVPUSH ONE (16:15)
[2022-11-30 16:16] LABS: A/G RATIO 0.5 (1-2); ALBUMIN 2.2 g/dl (3.4-5.0); ANION GAP 11.6 (5-15); BILIRUBIN TOTAL 2.2 mg/dL (0.2-1.0); C-REACTIVE PROTEIN 1.2 mg/dL (<1.0); CALCIUM 8.8 mg/dL (8.5-10.1); EST CRCL DRUG DOSING (CG) 61.1 mL/min; POTASSIUM,K 3.6 mEq/L (3.5-5.1); PROTEIN TOTAL,TP 7.1 g/dl (6.4-8.2)
[2022-11-30] MEDS: Albumin 25% 12.5 GM/50 ML BAG IV SCH ×4 (17:24→18:48)
[2022-11-30 20:23] VITALS: BP 103/55; PULSE 100
== END 2022-11-30 19:30 | disposition home or self-care (01) ==
LOC: JD.ED 14:44
DX: L89.229 Pressure ulcer of left hip, unspecified stage (principal); K70.11 Alcoholic hepatitis with ascites; J45.909 Unspecified asthma, uncomplicated; E66.9 Obesity, unspecified; Z68.21 Body mass index [BMI] 21.0-21.9, adult; Z86.16 Personal history of COVID-19; Z88.6 Allergy status to analgesic agent; Z91.013 Allergy to seafood; Z88.1 Allergy status to other antibiotic agents; Z91.018 Allergy to other foods; Z91.048 Other nonmedicinal substance allergy status; Z79.899 Other long term (current) drug therapy
CPT/HCPCS: 36415; 49082; 80053; 85025; 86140; 96365; 96366; 96375; 96376; 99284; J1170; J2405; J3490; P9047

== ENCOUNTER 2023-01-18 00:29 | Emergency (ER) | payer MEDICAID ==
[2023-01-18 00:49] VITALS: BP 108/59; PULSE 67
[2023-01-18 02:40] LABS: HEMATOCRIT 27.8 % (34.1-44.9); HEMOGLOBIN 9.6 gm/dl (11.2-15.7); MEAN CORPUSCULAR HEMOGLOBIN 31.4 pg (25.6-32.2); MEAN CORPUSCULAR HGB CONC 34.5 g/dl (32.2-35.5); MEAN CORPUSCULAR VOLUME 90.8 fl (79.4-94.8); MEAN PLATELET VOLUME 10.8 fl (9.4-12.3); PLATELET COUNT,PLT 307 K/mm3 (182-369); RED BLOOD CELL COUNT 3.06 M/mm3 (3.98-5.22)
[2023-01-18 02:50] LABS: A/G RATIO 0.5 (1-2); ALBUMIN 1.9 g/dl (3.4-5.0); ANION GAP 16.5 (5-15); BILIRUBIN TOTAL 1.8 mg/dL (0.2-1.0); BUN/CREATININE RATIO 31.6 (14-18); CALCIUM 8.7 mg/dL (8.5-10.1); CREATININE 2.5 mg/dL (0.55-1.02); EST CRCL DRUG DOSING (CG) 22.03 mL/min; MAGNESIUM 2.7 mg/dL (1.8-2.4)
[2023-01-18 03:12] LABS: POTASSIUM,K 7.5 mEq/L (3.5-5.1)
[2023-01-18 03:13] LABS: APPEARANCE,URINE CLEAR (Clear); BILIRUBIN,URINE NEGATIVE (Negative); COLOR,URINE YELLOW (Yellow); GLUCOSE,URINE NEGATIVE (Negative); KETONES,URINE NEGATIVE (Negative); LEUKOCYTE ESTERASE,URINE NEGATIVE (Negative); NITRITE,URINE NEGATIVE (Negative); OCCULT BLOOD,URINE NEGATIVE (Negative); PH,URINE 5.5 (5.0-8.0); PROTEIN,URINE 1+ (Negative); UROBILINOGEN,URINE 0.2 (0.2-1.0)
[2023-01-18 03:14] LABS: C-REACTIVE PROTEIN 27.2 mg/dL (<1.0)
[2023-01-18] MEDS ORDERED: Calcium Gluconate 10% 1 GM/10 ML SDV IVPUSH ONE ×2 (03:25→05:33)
[2023-01-18] MEDS ORDERED: Sodium Bicarbonate 150 MEQ in Dextrose 5% in Water 1,000 ML IV ONE ×2 (03:26)
[2023-01-18] MEDS ORDERED: 50% Dextrose in Water 50 ML Syringe IVPUSH STA (03:29)
[2023-01-18] MEDS ORDERED: Insulin Regular, Human 100 Units/ML 3 ML Vial IV STA (03:29)
[2023-01-18] MEDS ORDERED: Sodium Polystyrene Sulfonate 15 GM/60 ML Susp 60 ML Bot PO STA (03:31)
[2023-01-18 03:35] LABS: BAND PERCENT MAN 0 % (0-10); BASOPHILS PERCENT MAN 0 (0.1-1.2); EOSINOPHILS PERCENT MAN 1 % (0.7-5.8); LYMPHOCYTES % ATYPICAL MANUAL 0 %; LYMPHOCYTES PERCENT MAN 4 % (20-40); MONOCYTES PERCENT MAN 7 % (2-10)
[2023-01-18] MEDS ORDERED: Lactulose Soln 10 GM/15 ML 30 ML UD Cup PO STA (03:35)
[2023-01-18 03:37] LABS: PLATELET COUNT ESTIMATE ADEQUATE
[2023-01-18 03:44] LABS: BACTERIA,URINE MODERATE /hpf (FEW); RBC,URINE 0-5 /hpf (0-5); RENAL EPITHELIAL CELLS,URINE 0-5 /hpf (0-5); WBC,URINE 0-5 /hpf (0-5)
[2023-01-18 03:45] LABS: AMORPHOUS SEDIMENT,URINE FEW /hpf (NOT SEEN); MUCUS,URINE RARE /hpf (FEW)
[2023-01-18] MEDS ORDERED: Sodium Chloride 3% 500 ML IV SCH (03:45)
[2023-01-18] MEDS ORDERED: Calcium Gluconate 10% 1 GM/10 ML SDV IVPUSH STA (04:41)
[2023-01-18] MEDS ORDERED: cefTRIAXone 2 GM in Sodium Chloride 0.9% 100 ML IV STA (04:49)
[2023-01-18] MEDS ORDERED: Sodium Chloride 0.9% 1,000 ML IV ONE (05:06)
[2023-01-18 05:56] LABS: ANION GAP 16.7 (5-15); BUN/CREATININE RATIO 33.3 (14-18); CALCIUM 9.2 mg/dL (8.5-10.1); CREATININE 2.4 mg/dL (0.55-1.02); EST CRCL DRUG DOSING (CG) 22.95 mL/min
[2023-01-18 06:00] LABS: POTASSIUM,K 6.7 mEq/L (3.5-5.1)
[2023-01-18 06:02] LABS: BARBITURATE SCREEN,URINE NEGATIVE (CUTOFF=200); BENZODIAZEPINES SCREEN,URINE NEGATIVE (CUTOFF=150); BUPRENORPHINE SCREEN,URINE NEGATIVE (CUTOFF=10); METHADONE SCREEN, URINE NEGATIVE (CUTOFF=200); METHAMPHETAMINES SCREEN, URINE NEGATIVE (CUTOFF=500); OXYCODONE SCREEN,URINE PRESUMPTIVE POSITIVE (CUT0FF=100); PROPOXYPHENE SCREEN,URINE NEGATIVE (CUTOFF=300); THC SCREEN,URINE 20 NG/ML NEGATIVE (CUTOFF=50)
[2023-01-18 06:04] LABS: AMPHETAMINES SCREEN, URINE NEGATIVE (CUTOFF=500)
== END 2023-01-18 06:25 ==
LOC: JD.ED 00:29
DX: K76.82 Hepatic encephalopathy (principal); K76.7 Hepatorenal syndrome; K86.89 Other specified diseases of pancreas; E87.1 Hypo-osmolality and hyponatremia; E87.5 Hyperkalemia; E87.20 Acidosis, unspecified; I10 Essential (primary) hypertension; J45.909 Unspecified asthma, uncomplicated; Z88.1 Allergy status to other antibiotic agents; Z91.018 Allergy to other foods; Z88.8 Allergy status to other drugs, medicaments and biological substances; Z91.013 Allergy to seafood; Z79.899 Other long term (current) drug therapy; Z90.49 Acquired absence of other specified parts of digestive tract
CPT/HCPCS: 36415; 74176; 80048; 80053; 80306; 80307; 81001; 82140; 83690; 83735; 85007; 85027; 86140; 87040; 93005; 96365; 96366; 96368; 96375; 96376; 99285; A9270; J0612; J0696; J1815; J3490; J7030; J7060; J7131; 93010